=== PATIENT | female | born 1945 | race Two or more races ===

== ENCOUNTER 2017-05-15 09:38 | Emergency (ER) | payer MEDICARE, OTHER ==
[2017-05-15 09:48] VITALS: BP 165/74; PULSE 88; TEMP 97.8; BMI 32.2
[2017-05-15] MEDS ORDERED: IBUPROFEN 600 MG TABLET (FP) PO ONE ×2 (11:20→11:22)
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
== END 2017-05-15 12:48 | disposition home or self-care (01) ==
LOC: JERFT 09:38
DX: S50.01XA Contusion of right elbow, initial encounter (principal); V03.10XA Pedestrian on foot injured in collision with car, pick-up truck or van in traffic accident, initial encounter; Y92.414 Local residential or business street as the place of occurrence of the external cause; Y93.89 Activity, other specified; Y99.8 Other external cause status; I10 Essential (primary) hypertension; E78.00 Pure hypercholesterolemia, unspecified; E11.9 Type 2 diabetes mellitus without complications; Z79.84 Long term (current) use of oral hypoglycemic drugs
CPT/HCPCS: 71101-TC-RT-FY; 73070-TC-RT-FY; 99281-25

== ENCOUNTER 2018-06-10 21:58 | Inpatient (IN) | payer MEDICARE, OTHER ==
[2018-06-11] MEDS ORDERED: LACTATED RINGERS SOLUTION 1000 ML INFUS.BAG IV ONE (00:33)
[2018-06-11] MEDS ORDERED: morphine CARPU-JECT 4 MG/1 ML DISP.SYRIN IVPUSH ONE ×2 (00:33→01:47)
[2018-06-11] MEDS ORDERED: ONDANSETRON 4 MG/2 ML VIAL IVPB ONE (00:33)
[2018-06-11 00:43] LABS: BASO % 0.2 % (0-2.0); MCH 30.4 pg (25.7-33.7); MEAN PLT VOLUME 9.4 fl (7.5-11.1); RBC 4.63 M/mm3 (3.60-5.2)
[2018-06-11 00:45] LABS: EOS % 0.2 % (0-4.5); HEMATOCRIT 41.4 % (32.4-45.2); HEMOGLOBIN 14.1 GM/dL (10.7-15.3); LYMPH % 9.3 % (8-40); MCHC 33.9 g/dl (32.0-36.0); MEAN CELL VOLUME 89.5 fl (80-96); NEUT % 86.3 % (42.8-82.8); PLATELET COUNT 192 K/MM3 (134-434); RDW 14.4 % (11.6-15.6); WHITE BLOOD COUNT 7.7 K/mm3 (4.0-10.0)
[2018-06-11] MEDS ORDERED: MAG HYDROX/AL HYDROX/SIMETH 30 ML UNIT-DOSE CUP PO ONE (00:49)
[2018-06-11] MEDS ORDERED: FAMOTIDINE 20 MG/50 ML IVPB 20 MG/50 ML MG IVPB ONE ×2 (00:49→00:52)
[2018-06-11] MEDS ORDERED: MAG HYDROX/AL HYDROX/SIMETH 30 ML UNIT-DOSE CUP ONE (00:52)
[2018-06-11] MEDS ORDERED: ONDANSETRON 4 MG/2 ML VIAL ONE (00:52)
--- NOTE | 2018-06-11 00:56 | PDOC ---
Attending Attestation - Resident Resident Name: Nini Carmen - ED Attending Attestation I have performed the following: I have examined & evaluated the patient, The case was reviewed & discussed with the resident, I agree w/resident's findings & plan, Exceptions are as noted - HPI HPI: 06/11/18 00:57 72 yo female p/w epigastric pain,nausea since Sunday pain radiated to her back - Physicial Exam PE: 06/11/18 01:07 wnwd 72 yo female p/w epigastric pain head ncat neck supple lungs cta b/l cvs [id number] abd epigastric tenderness,+bs ext no edema skin warm and dry neuro axox3,ambulatory psych appropriate 06/11/18 01:17 - Medical Decision Making 06/11/18 01:18 differential includes cholecystitis, gastritis,GERD,ACS 06/11/18 01:25 alt >1000 ast.500 tbili=3.4 pt admitted for acute cholecystitis 06/12/18 00:12
[2018-06-11 01:20] LABS: ALBUMIN 3.9 g/dl (3.4-5.0); ALK PHOS 451 U/L (45-117); ANION GAP 9 MMOL/L (8-16); BILIRUBIN,TOTAL 3.4 mg/dL (0.2-1); BLOOD UREA NITROGEN 15 mg/dL (7-18); CALCIUM 10.6 mg/dL (8.5-10.1); CHLORIDE 101 mmol/L (98-107); CO2 25 mmol/L (21-32); CREATININE 0.6 mg/dL (0.55-1.3); POTASSIUM 3.7 mmol/L (3.5-5.1); SGOT/AST 507 U/L (15-37); SGPT/ALT 1098 U/L (13-61); SODIUM 135 mmol/L (136-145); TOT PROT 7.6 g/dl (6.4-8.2)
[2018-06-11 01:22] LABS: GLUCOSE,RANDOM 308 mg/dL (74-106)
--- NOTE | 2018-06-11 01:47 | PDOC ---
History of Present Illness - General Chief Complaint: Pain Stated Complaint: STOMACH PAIN Time Seen by Provider: 06/11/18 00:05 History Source: Patient, Family Exam Limitations: Language Barrier - History of Present Illness Travel History: No Initial Comments: 06/11/18 01:41 Pt is a 72yo F with PMH of NIDDM, HTN, HLD, Hypothyroidism presenting to ED with complaints of epigastric abdominal pain x 3 days. Pt says the pain started on Sunday, has been constant and radiates to the back. Associated with nausea. Last BM was 2 days ago. She denies vomiting, fever, chills, bloody stools, chest pain, sob, urinary symptoms, headaches, numbness, tingling, cough. She had c-sections and a hernia repair many years ago. She has had pain like this before. She has ultrasound scheduled for next week. PMD: Juan Manuel PMH: see hpi PSH: see hpi Meds: Allergies: nkda Social: denies Past History - Past Medical History Allergies/Adverse Reactions: Allergies Allergy/AdvReac Type Severity Reaction Status Date / Time No Known Drug Allergies Allergy Verified 05/15/17 09:41 Home Medications: Ambulatory Orders Amlodipine Besylate/Benazepril [Lotrel 5-20 mg Capsule] 5 - 20 each PO DAILY 09/12 Atorvastatin Ca [Lipitor] 20 mg PO HS 07/06/12 Glipizide [Glipizide Xl] 5 mg PO DAILY 07/06/12 metFORMIN HCL [Glucophage -] 500 mg PO BID 07/06/12 Glimepiride [Amaryl -] 2 mg PO DAILY 06/12/18 Levothyroxine [Synthroid -] 75 mcg PO DAILY 06/12/18 Acetaminophen [Tylenol .Regular Strength -] 650 mg PO Q6H tablet 06/15/18 COPD: No - Suicide/Smoking/Psychosocial Hx Smoking History: Never smoked Have you smoked in the past 12 months: No Information on smoking cessation initiated: No Hx Alcohol Use: No Drug/Substance Use Hx: No Review of Systems - Review of Systems Constitutional: Yes: See HPI HEENTM: Yes: See HPI Respiratory: Yes: See HPI Cardiac (ROS): Yes: See HPI ABD/GI: Yes: See HPI : Yes: See HPI Musculoskeletal: Yes: See HPI Integumentary: Yes: See HPI Neurological: Yes: See HPI *Physical Exam - Vital Signs Last Vital Signs Temp Pulse Resp BP Pulse Ox 98.0 F 83 16 123/54 L 100 06/10/18 22:13 06/10/18 22:13 06/10/18 22:13 06/10/18 22:13 06/11/18 01:07 - Physical Exam General Appearance: Yes: Nourished, Appropriately Dressed, Mild Distress HEENT: positive: EOMI, PHYLICIA Neck: positive: Trachea midline, Supple Respiratory/Chest: positive: Lungs Clear, Normal Breath Sounds Cardiovascular: positive: Regular Rhythm, Regular Rate, S1, S2 Vascular Pulses: Carotid (R): 2+, Carotid (L): 2+, Dorsalis-Pedis (R): 2+, Doralis-Pedis (L): 2+ Gastrointestinal/Abdominal: positive: Normal Bowel Sounds, Tender (epigastric, RUQ), Soft. negative: Guarding, Rebound, Hernia, Mass Musculoskeletal: negative: CVA Tenderness Extremity: positive: Normal Capillary Refill. negative: Swelling Integumentary: positive: Normal Color, Dry, Warm Neurologic: positive: or director II-XII NML intact, Fully Oriented, Alert, Normal Mood/ Affect, Normal Response, Motor Strength 5/5 Moderate Sedation - Procedure Monitoring Vital Signs: Procedure Monitoring Vital Signs Temperature 98.0 F 06/10/18 22:13 Pulse Rate 83 06/10/18 22:13 Respiratory Rate 16 06/10/18 22:13 Blood Pressure 123/54 L 06/10/18 22:13 O2 Sat by Pulse Oximetry (%) 100 06/11/18 01:07 ED Treatment Course - LABORATORY CBC & Chemistry Diagram: 06/14/18 06:30 06/14/18 06:30 - ADDITIONAL ORDERS Additional order review: Laboratory Results 06/11/18 06/11/18 00:23 00:23 Sodium 135 L Potassium 3.7 Chloride 101 Carbon Dioxide 25 Anion Gap 9 BUN 15 Creatinine 0.6 Creat Clearance w eGFR > 60 Random Glucose 308 H* Lactic Acid 1.5 Calcium 10.6 H Total Bilirubin 3.4 H AST 507 H ALT 1098 H Alkaline Phosphatase 451 H Total Protein 7.6 Albumin 3.9 06/11/18 00:23 RBC 4.63 MCV 89.5 MCHC 33.9 RDW 14.4 MPV 9.4 Neutrophils % 86.3 H Lymphocytes % 9.3 Monocytes % 4.0 Eosinophils % 0.2 Basophils % 0.2 - RADIOLOGY Radiology Studies Ordered: Category Date Time Status ABDOMEN US -LIMITED [US] Stat Ultrasound 06/11/18 00:56 Taken - Medications Given in the ED: ED Medications Discontinued Medications Generic Name Dose Route Start Last Admin Trade Name Giselle PRN Reason Stop Dose Admin Al Hydroxide/Mg Hydroxide 30 ml 06/11/18 00:49 06/11/18 01:18 Mylanta Oral Suspension - PO 06/11/18 00:50 30 ml ONCE ONE Administration Famotidine/Sodium Chloride 20 mg in 50 mls @ 100 mls/hr 06/11/18 00:49 01:18 Pepcid 20 Mg Premixed Ivpb - IVPB 06/11/18 01:18 100 mls/hr ONCE ONE Administration Lactated Ringer's 1,000 ml 06/11/18 00:33 06/11/18 01:14 Lactated Ringers Solution IV 06/11/18 00:34 1,000 ml NOW ONE Administration Ondansetron HCl 4 mg 06/11/18 00:33 06/11/18 01:18 Zofran Injection IVPB 06/11/18 00:34 4 mg ONCE ONE Administration Medical Decision Making - Medical Decision Making 06/11/18 01:45 Pt is a 72yo F with PMH of NIDDM, HTN, HLD, Hypothyroidism presenting to ED with complaints of epigastric abdominal pain x 3 days. Pt says the pain started on Sunday, has been constant and radiates to the back. Associated with nausea. Last BM was 2 days ago. She denies vomiting, fever, chills, bloody stools, chest pain, sob, urinary symptoms, headaches, numbness, tingling, cough. She had c-sections and a hernia repair many years ago. She has had pain like this before. She has ultrasound scheduled for next week. Vitals: wnl PE: epigastric and RUQ tenderness. DDx includes but not limited to cholecystitis, pancreatitis, cholangitis, nephrolithiasis, pyelonephritis, colitis, AAA, dissection -cbc, cmp, lipase, trop -ekg, u/s -pepcid, zofran, mylanta, morphine, fluids labs significant for transaminitis and elevated lipase US: dilated biliary tree. Will admit choledocolithiasis v. cholangitis *DC/Admit/Observation/Transfer Diagnosis at time of Disposition: Cholelithiasis - Discharge Dispostion Disposition: HOME Condition at time of disposition: Stable - Referrals - Patient Instructions - Post Discharge Activity
[2018-06-11] MEDS ORDERED: morphine SULFATE 4 MG/ML VIAL ONE (02:15)
[2018-06-11] MEDS ORDERED: PIPERACILLIN/TAZOB 3.375 GM 3.375 GM in DEXTROSE 5%-WATER - 50 ML IVPB ONE (02:24)
[2018-06-11] MEDS ORDERED: PIPERACILLIN/TAZOB 3.375 GM 3.375 GM/50 ML BAG IVPB ONE (02:41)
[2018-06-11 02:57] LABS: URINE APPEARANCE CLEAR; URINE BILIRUBIN NEGATIVE (<2.0 mg/dL); URINE COLOR YELLOW; URINE GLUCOSE (UA) 3+ (NEGATIVE); URINE KETONE 1+ (NEGATIVE); URINE LEUK ESTERASE TRACE (NEGATIVE); URINE NITRITE NEGATIVE (NEGATIVE); URINE PROTEIN NEGATIVE (NEGATIVE)
[2018-06-11 03:00] LABS: EPI CELLS RARE /HPF (FEW)
--- NOTE | 2018-06-11 03:29 | HP ---
<Paul,Vince - Last Filed: 06/11/18 06:29> CHIEF COMPLAINT: Epigastric Pain PCP: HISTORY OF PRESENT ILLNESS: Pt. is 72 y.o. Kyrgyz-speaking F w/ PMHx. of NIDDM , HTN, HLD and Hypothyroidism presents with 3 days history of worsening abdominal pain. Pt. states the pain radiates to the back. Pts states that years ago in [place] she had a pain like this and it was treated with medication. Pt. endorses nausea over the last 3 days when attempting to eat but no vomiting. Pt. has decreased PO intake. Pt. denies chest pain, shortness of breath, diarrhea or constipation. Pt. denies fever or chills. Pt. does not recall names of her medications, states will bring list in AM. ER course was notable for: (1)Abdominal US (2)LFTs (3)Zosyn Recent Travel: PAST MEDICAL HISTORY: NIDDM, HTN, HLD, Hypothyroidism PAST SURGICAL HISTORY: C-sections and Hernia repair many years ago. Social History: Smoking: Denies Alcohol: Denies Drugs: Denies Family History: Daughter at 48 of unknown stomach cancer Allergies No Known Allergies Allergy (Verified 06/10/18 22:15) HOME MEDICATIONS: Home Medications Medication Instructions Recorded Unobtainable 06/11/18 REVIEW OF SYSTEMS CONSTITUTIONAL: Present: loss of appetite Absent: fever, chills, diaphoresis, generalized weakness, malaise, weight change HEENT: Absent: rhinorrhea, nasal congestion, throat pain, throat swelling, difficulty swallowing, mouth swelling, ear pain, eye pain, visual changes CARDIOVASCULAR: Absent: chest pain, syncope, palpitations, irregular heart rate, lightheadedness , peripheral edema RESPIRATORY: Absent: cough, shortness of breath, dyspnea with exertion, orthopnea, wheezing, stridor, hemoptysis GASTROINTESTINAL: nausea, abdominal pain Absent: abdominal distension, vomiting, diarrhea, constipation, melena, hematochezia GENITOURINARY: Absent: dysuria, frequency, urgency, hesitancy, hematuria, flank pain, genital pain MUSCULOSKELETAL: Absent: myalgia, arthralgia, joint swelling, back pain, neck pain SKIN: Absent: rash, itching, pallor HEMATOLOGIC/IMMUNOLOGIC: Absent: easy bleeding, easy bruising, lymphadenopathy, frequent infections ENDOCRINE: Absent: unexplained weight gain, unexplained weight loss, heat intolerance, cold intolerance NEUROLOGIC: Absent: headache, focal weakness or paresthesias, dizziness, unsteady gait, seizure, mental status changes, bladder or bowel incontinence PSYCHIATRIC: Absent: anxiety, depression, suicidal or homicidal ideation, hallucinations. PHYSICAL EXAMINATION Vital Signs - 24 hr 06/10/18 06/11/18 22:13 01:07 Temperature 98.0 F Pulse Rate 83 Respiratory 16 Rate Blood Pressure 123/54 L O2 Sat by Pulse 100 100 Oximetry (%) GENERAL: Awake, alert, and fully oriented, in no acute distress. HEAD: Normal with no signs of trauma. EYES: Pupils equal, round, sclera anicteric, conjunctiva clear EARS, NOSE, THROAT: Ears normal, nares patent. Moist mucous membranes. NECK: Normal range of motion, supple without lymphadenopathy, JVD, or masses. LUNGS: Breath sounds equal, clear to auscultation bilaterally. No wheezes, and no crackles. No accessory muscle use. HEART: Regular rate and rhythm, normal S1 and S2 without murmur, rub or gallop. ABDOMEN: Soft, epigastric tenderness, not distended, normoactive bowel sounds, no guarding, no rebound, no masses, Allen negative, Wall's sign negative. MUSCULOSKELETAL: Tenderness in lower thoracic spine from abdomen, No CVA tenderness. Banda-Alarcon's sign Negative UPPER EXTREMITIES: 2+ radial pulses, warm, well-perfused. No cyanosis. No clubbing. No peripheral edema. LOWER EXTREMITIES: 2+ dorsal pedal pulses, warm, well-perfused. No calf tenderness. No peripheral edema. NEUROLOGICAL: Normal speech. Normal gait. PSYCHIATRIC: Cooperative. Good eye contact. Appropriate mood and affect. SKIN: Warm, dry, normal turgor, no rashes or lesions noted, normal capillary refill. Laboratory Results - last 24 hr 06/11/18 06/11/18 06/11/18 00:23 00:23 00:23 WBC 7.7 RBC 4.63 Hgb 14.1 Hct 41.4 MCV 89.5 MCH 30.4 MCHC 33.9 RDW 14.4 Plt Count 192 MPV 9.4 Absolute Neuts (auto) 6.6 Neutrophils % 86.3 H Lymphocytes % 9.3 Monocytes % 4.0 Eosinophils % 0.2 Basophils % 0.2 Nucleated RBC % 0 Sodium 135 L Potassium 3.7 Chloride 101 Carbon Dioxide 25 Anion Gap 9 BUN 15 Creatinine 0.6 Creat Clearance w eGFR > 60 Random Glucose 308 H* Lactic Acid Calcium 10.6 H Total Bilirubin 3.4 H AST 507 H ALT 1098 H Alkaline Phosphatase 451 H Troponin I Cancelled Total Protein 7.6 Albumin 3.9 Lipase Urine Color Urine Appearance Urine pH Ur Specific [place] Urine Protein Urine Glucose (UA) Urine Ketones Urine Blood Urine Nitrite Urine Bilirubin Urine Urobilinogen Ur Leukocyte Esterase Urine WBC (Auto) Urine RBC (Auto) Ur Epithelial Cells 06/11/18 06/11/18 06/11/18 00:23 00:23 00:23 WBC RBC Hgb Hct MCV MCH MCHC RDW Plt Count MPV Absolute Neuts (auto) Neutrophils % Lymphocytes % Monocytes % Eosinophils % Basophils % Nucleated RBC % Sodium Potassium Chloride Carbon Dioxide Anion Gap BUN Creatinine Creat Clearance w eGFR Random Glucose Lactic Acid 1.5 Calcium Total Bilirubin AST ALT Alkaline Phosphatase Troponin I < 0.02 Total Protein Albumin Lipase 278 Urine Color Urine Appearance Urine pH Ur Specific [place] Urine Protein Urine Glucose (UA) Urine Ketones Urine Blood Urine Nitrite Urine Bilirubin Urine Urobilinogen Ur Leukocyte Esterase Urine WBC (Auto) Urine RBC (Auto) Ur Epithelial Cells 06/11/18 02:45 WBC RBC Hgb Hct MCV MCH MCHC RDW Plt Count MPV Absolute Neuts (auto) Neutrophils % Lymphocytes % Monocytes % Eosinophils % Basophils % Nucleated RBC % Sodium Potassium Chloride Carbon Dioxide Anion Gap BUN Creatinine Creat Clearance w eGFR Random Glucose Lactic Acid Calcium Total Bilirubin AST ALT Alkaline Phosphatase Troponin I Total Protein Albumin Lipase Urine Color Yellow Urine Appearance Clear Urine pH 6.0 Ur Specific [place] 1.018 Urine Protein Negative Urine Glucose (UA) 3+ H Urine Ketones 1+ H Urine Blood Negative Urine Nitrite Negative Urine Bilirubin Negative Urine Urobilinogen 2.0 H Ur Leukocyte Esterase Trace Urine WBC (Auto) 5 Urine RBC (Auto) 1 Ur Epithelial Cells Rare ASSESSMENT/PLAN: Pt. is a 72 y.o. F w/ PMHx. of NIDDM, HTN, HLD, and Hypothyroidism presents with 3 days of abdominal pain. #Abdominal Pain 2/2 cholecystitis Abdominal US positive for gallstones, thickened GB wall (4mm) and CBD dilatation (11mm) Exquisite epigastric tenderness f/u MRCP, ERCP and then CCY AST: 507; ALT: 1098, TBili-3.4, ALP 451 f/u Gastroenterology (Dr. Wlaler) consult f/u Surgery (Dr. Mascorro)consult f/u ID (Dr. Siddiqui) consult c/w Zosyn #NIDDM-uncontrolled Random Glucose 308 3+ Glucose and 1+ ketones in urine f/u HgbA1c ISS TIDAC BGM TIDAC hold home medications #FEN NS @ 125/hr monitor electrolytes replete as needed NPO #DVT PPx. HeparinSQ Visit type - Emergency Visit Emergency Visit: Yes ED Registration Date: 06/11/18 Care time: The patient presented to the Emergency Department on the above date and was hospitalized for further evaluation of their emergent condition. - New Patient This patient is new to me today: Yes Date on this admission: 06/11/18 - Critical Care Critical Care patient: No <Chivo Carl - Last Filed: 07/17/18 19:39> Seen and examined; agree with above aside from as supplemented by myself in my own assessment, plan, and physical examination.
--- NOTE | 2018-06-11 04:07 | PN ---
Teaching Attending Note Name of Resident: Vince Miller ATTENDING PHYSICIAN STATEMENT I saw and evaluated the patient. I reviewed the resident's note and discussed the case with the resident. I agree with the resident's findings and plan as documented. SUBJECTIVE: Seen and examined; please refer to resident note for further historical information. Briefly, this is a 72 y/o female who presents to the ER with a CC of abdominal pain. Pain started 3 days ago and radiates to the back through the epigastrium. Was scheduled for US next week but pain got so severe that she came in. Has had similar pain years ago in [place]. Hx , hernia repair. Does have some severe nausea and associated anorexia. US done in the ER shows GB wall thickening and 11 CBD; started on broad spectrum abx and bringing to the floor. She is hemdynamically stable. No jaundice observed , afebrile. Pain is nearly resolved after analgesia given in ER. 10 sys ROS done and negative aside from HPI FH (daughter with stomach tumor) PMH (DM, HTN, HLD, Hypothyroidism) Medications pending; calling pharmacy OBJECTIVE: VS, labs, imaging reviewed NAD, AAO, resting comfortably in bed. NC AT EOMI PERRLA; tacky MM's Epigastric ptp with some mild guarding, nondistended Lungs CTAB, w/ sym exp RRR s1/2 no mgr CN2-12 wnl, no fnd Normal mood, appropriate affect. Imaging shows CBD 11mm, GB with gallstones and thickening to 4mm of the wall. ASSESSMENT AND PLAN: Patient presents with abdominal pain and transaminitis and choledocholithiasis 1) Choledocholithiasis -IV zosyn, GI and sgy consult, NPO, IVF, pain and nausea control -MRCP w and w/o pending (given elevated alkaline phosphatasse) pending. Further workup per GI. Trend CMP. 2) DM -SSI 3) HTN -Hold PO meds; resume when clinically appropriate. PRN management to keep <160 4) Hypothyroidism -Check TSH as OP 5) HLD -Followup FLP as OP 6) Transaminitis -2/2 #1; trend CMP Full Code
[2018-06-11] MEDS ORDERED: HEPARIN NA (PORCINE) 5,000 UNITS/ML 1ML VIAL SQ SCH (06:00)
[2018-06-11] MEDS: SODIUM CHLORIDE 1,000 ML IV SCH ×3 (06:26→13:28)
[2018-06-11] MEDS ORDERED: HEPARIN NA (PORCINE) 5,000 UNITS/ML 1ML VIAL ONE (06:32)
[2018-06-11 07:13] LABS: BASO % 0.5 % (0-2.0); EOS % 0.3 % (0-4.5); HEMOGLOBIN 12.2 GM/dL (10.7-15.3); LYMPH % 21.9 % (8-40); MCHC 33.9 g/dl (32.0-36.0); MEAN CELL VOLUME 88.5 fl (80-96); MEAN PLT VOLUME 9.2 fl (7.5-11.1); MONO % 7.2 % (3.8-10.2); NEUT % 70.1 % (42.8-82.8); PLATELET COUNT 173 K/MM3 (134-434); RBC 4.06 M/mm3 (3.60-5.2); RDW 14.7 % (11.6-15.6); WHITE BLOOD COUNT 6.5 K/mm3 (4.0-10.0)
[2018-06-11] MEDS ORDERED: INSULIN (NOVOLOG) ASPART 100 UNITS/ML 10ML VIAL ONE (07:15)
[2018-06-11] MEDS: INSULIN SLIDING SCALE (NOVOLOG) 1 VIAL SQ SCH ×3 (07:19→16:52)
[2018-06-11 07:45] LABS: ALBUMIN 3.2 g/dl (3.4-5.0); ALK PHOS 393 U/L (45-117); ANION GAP 6 MMOL/L (8-16); BLOOD UREA NITROGEN 11 mg/dL (7-18); CALCIUM 9.9 mg/dL (8.5-10.1); CHLORIDE 109 mmol/L (98-107); CO2 24 mmol/L (21-32); CREATININE 0.6 mg/dL (0.55-1.3); GLUCOSE,RANDOM 216 mg/dL (74-106); MAGNESIUM 1.7 mg/dL (1.8-2.4); PHOSPHOROUS 2.3 mg/dL (2.5-4.9); POTASSIUM 3.7 mmol/L (3.5-5.1); SGOT/AST 551 U/L (15-37); SGPT/ALT 991 U/L (13-61); SODIUM 139 mmol/L (136-145); TOT PROT 6.2 g/dl (6.4-8.2)
[2018-06-11 07:46] LABS: INR 1.04 (0.83-1.09); PROTHROMBIN TIME (PATIENT) 12.3 SEC (9.7-13.0)
[2018-06-11] MEDS ORDERED: ACETAMINOPHEN 1000 MG/100 ML VIAL (NON FORMULARY) IVPB PRN (07:48)
[2018-06-11 08:25] VITALS: BMI 32.3
[2018-06-11] MEDS ORDERED: PNEUMOC 13-VAL CONJ-DIP CRM/PF 0.5 ML DISP.SYRIN IM ONE (09:30)
[2018-06-11] MEDS ORDERED: PIPERACILLIN/TAZOBACTAM 3.375 GM VIAL IVPB ONE ×2 (09:59→16:44)
[2018-06-11] MEDS ORDERED: DEXTROSE 5%-WATER - 50 ML IVPB ONE ×2 (09:59→16:44)
[2018-06-11] MEDS ORDERED: PIPERACILLIN/TAZOB 3.375 GM 3.375 GM in DEXTROSE 5%-WATER - 50 ML IVPB SCH (10:00)
[2018-06-11] MEDS: PANTOPRAZOLE SODIUM 40 MG VIAL IVPUSH SCH (10:22)
--- NOTE | 2018-06-11 10:43 | CON.GI ---
Consult Reason for Consultation:: abdominal pain - History of Present Illness History of Present Illness: Pt is a 72 year old woman with a past medical history of DM, HTN, HLD, hypothyroidism who presents with a three day history of epigastric abdominal pain and nausea. She has not been able to tolerate po intake. She reports similar episode in [place] a few months back. - History Source History Provided By: Medical Record Limitations to Obtaining History: Other (pt at [facility]ri) - Past Medical History Cardio/Vascular: Yes: HTN, Hyperlipdemia - Past Surgical History Past Surgical History: Yes: , Hernia Repair - Alcohol/Substance Use Hx Alcohol Use: No - Smoking History Smoking history: Never smoked Have you smoked in the past 12 months: No - Social History Usual Living Arrangement: Other Home Medications - Allergies Allergies/Adverse Reactions: Allergies Allergy/AdvReac Type Severity Reaction Status Date / Time No Known Allergies Allergy Verified 06/10/18 22:15 - Home Medications Home Medications: Ambulatory Orders Unobtainable 06/11/18 Family Disease History - Family Disease History Other Family History: gastric cancer - mother Review of Systems - Review of Systems Gastrointestinal: reports: Abdominal Pain Physical Exam-GI Vital Signs: Vital Signs Temperature 97.8 F 06/11/18 08:00 Pulse Rate 75 06/11/18 08:00 Respiratory Rate 20 06/11/18 08:00 Blood Pressure 160/75 06/11/18 08:00 O2 Sat by Pulse Oximetry (%) 97 06/11/18 07:00 Labs: CBC, BMP 06/11/18 06:45 06/11/18 06:45 INR, PTT INR 1.04 (0.83-1.09) 06/11/18 06:45 Imaging - Results Ultrasound: Report Reviewed, Image Reviewed MRI: Pending Problem List - Problems (1) Transaminitis Assessment/Plan: Impression: Transaminitis / dilated cbd on imaging suspicious for choledocholithiasis / cholecystitis REC: - npo / ivf's - zosyn - trend lft q12 - will order hep serologies for completeness - await results of MRCP , may need ercp pending results - surgery consultation - pt will be followed by the GI service. Code(s): R74.0 - NONSPEC ELEV OF LEVELS OF TRANSAMNS & LACTIC ACID DEHYDRGNSE (2) Abdominal pain Code(s): R10.9 - UNSPECIFIED ABDOMINAL PAIN (3) Cholelithiasis Code(s): K80.20 - CALCULUS OF GALLBLADDER W/O CHOLECYSTITIS W/O OBSTRUCTION
--- NOTE | 2018-06-11 13:05 | PN ---
Teaching Attending Note Name of Resident: Pedro Sam ATTENDING PHYSICIAN STATEMENT I saw and evaluated the patient. I reviewed the resident's note and discussed the case with the resident. I agree with the resident's findings and plan as documented. SUBJECTIVE: No fever or chills. No ROSE , no abd pain at this time. No N/V. reports abd pain on and off for past 3 days. resolved with morphine given in ER. she denies PC or SOB, denies exertional CP . no SOB OBJECTIVE: NAD , slightly icteric sclera Cv: RRR, no MRG Lungs: CTAB. Abd: soft, ND, TTP in epigastric area. Neg Allen's. No rebound tenderness or guarding. Ext : no edema or erythema ASSESSMENT AND PLAN: 72 y/o lady with h/o HTN, HLP, DM ,hyothyroidism and other medical problems who presented with N/V and abd pain, and was found to have transaminitis and dialtion of CBD . 1- Transaminitis : co ncern for CBd stone, especially with rising LFTS. US with gall stones in gall bladder and CBD dilation of 10 mm No signs of sepsis , but certainly at high risk . - MRCP. called to make it urgent - cont zosyn empiricaly. ID to evaluate - IVF . - GI recs pending - will possibly need ERCP - has no cardiac issues, no murmurs appreciated on exam, has no LANE or exertional CP . will be low risk for GI procedure - timing of CCY to be determined after MRCP and possible ERCP - DC heparin , for possible ERCP 2- DM : SSI q 6 hr, while NPO . loose scale 3- HTN: low to normal blood pressure . will monitor Dispo: HLOC
--- NOTE | 2018-06-11 13:23 | CON.ID ---
Consult Consult Specialty:: infectious diseases Referred by:: dr lópez Reason for Consultation:: abd pain ,choleycystitis - History of Present Illness Chief Complaint: abd pain History of Present Illness: 72 year old woman with a past medical history of DM, HTN, HLD, hypothyroidism who presents with a three day history of epigastric abdominal pain and nausea. She has not been able to tolerate po intake. She reports similar episode in [place] a few months back. patient was worked up and found to ahve gall stones surgery and gi on the case - History Source History Provided By: Patient Limitations to Obtaining History: No Limitations - Alcohol/Substance Use Hx Alcohol Use: No - Smoking History Smoking history: Never smoked Have you smoked in the past 12 months: No Home Medications - Allergies Allergies/Adverse Reactions: Allergies Allergy/AdvReac Type Severity Reaction Status Date / Time No Known Drug Allergies Allergy Verified 05/15/17 09:41 - Home Medications Home Medications: Ambulatory Orders Amlodipine Besylate/Benazepril [Lotrel 5-20 mg Capsule] 5 - 20 each PO DAILY 09/12 Atorvastatin Ca [Lipitor] 20 mg PO HS 07/06/12 Glipizide [Glipizide Xl] 5 mg PO DAILY 07/06/12 metFORMIN HCL [Glucophage -] 500 mg PO BID 07/06/12 Glimepiride [Amaryl -] 2 mg PO DAILY 06/12/18 Levothyroxine [Synthroid -] 75 mcg PO DAILY 06/12/18 Benazepril HCl 20 mg PO DAILY 08/23/18 Cephalexin Monohydrate [Keflex -] 500 mg PO BID #14 capsule 08/23/18 Review of Systems - Review of Systems Constitutional: reports: No Symptoms Eyes: reports: No Symptoms HENT: reports: No Symptoms Neck: reports: No Symptoms Cardiovascular: reports: No Symptoms Respiratory: reports: No Symptoms Gastrointestinal: reports: Abdominal Pain Genitourinary: reports: No Symptoms Musculoskeletal: reports: No Symptoms Integumentary: reports: No Symptoms Neurological: reports: No Symptoms Endocrine: reports: No Symptoms Hematology/Lymphatic: reports: No Symptoms Psychiatric: reports: No Symptoms Physical Exam Vital Signs: Vital Signs Temperature 97.8 F 06/11/18 08:00 Pulse Rate 75 06/11/18 08:00 Respiratory Rate 20 06/11/18 08:00 Blood Pressure 160/75 06/11/18 08:00 O2 Sat by Pulse Oximetry (%) 97 06/11/18 07:00 Constitutional: Yes: Well Nourished, Calm, Mild Distress Eyes: Yes: Conjunctiva Clear HENT: Yes: Atraumatic, Normocephalic Neck: Yes: Supple, Trachea Midline Cardiovascular: Yes: Regular Rate and Rhythm, S1, S2 Respiratory: Yes: Regular, CTA Bilaterally Gastrointestinal: Yes: Normal Bowel Sounds, Soft, Other (mild tenderness) Musculoskeletal: Yes: WNL Extremities: Yes: WNL Neurological: Yes: Alert, Oriented Psychiatric: Yes: Alert, Oriented Labs: CBC, BMP 06/11/18 06:45 06/11/18 06:45 Imaging - Results Chest X-ray: Report Reviewed, Image Reviewed Ultrasound: Report Reviewed, Image Reviewed MRI: Report Reviewed, Image Reviewed Assessment/Plan Problem List - Problems (1) Calculus gallbladder and bile duct w/acute cholecystitis and obstructn Code(s): K80.63 - CALCULUS OF GB AND BILE DUCT W ACUTE CHOLECYST W OBSTRUCTION (2) Epigastric pain Code(s): R10.13 - EPIGASTRIC PAIN (3) Controlled diabetes mellitus with hyperglycemia, without long-term current use of insulin Code(s): E11.65 - TYPE 2 DIABETES MELLITUS WITH HYPERGLYCEMIA Qualifiers: Diabetes mellitus type: type 2 Qualified Code(s): E11.65 - Type 2 diabetes mellitus with hyperglycemia (4) Hypertension Code(s): I10 - ESSENTIAL (PRIMARY) HYPERTENSION Qualifiers: Hypertension type: essential hypertension Qualified Code(s): I10 - Essential (primary) hypertension (5) Hypothyroidism Code(s): E03.9 - HYPOTHYROIDISM, UNSPECIFIED Qualifiers: Hypothyroidism type: unspecified Qualified Code(s): E03.9 - Hypothyroidism , unspecified (6) Hyperlipidemia Code(s): E78.5 - HYPERLIPIDEMIA, UNSPECIFIED Qualifiers: Hyperlipidemia type: unspecified Qualified Code(s): E78.5 - Hyperlipidemia , unspecified (7) Obesity (BMI 30.0-34.9) Code(s): E66.9 - OBESITY, UNSPECIFIED plan will start patient on iv abx surgery to see the patient gi on case hydration further studies rest as per the team
--- NOTE | 2018-06-11 13:31 | EKG ---
Test Reason : Blood Pressure : / mmHG Vent. Rate : 083 BPM Atrial Rate : 083 BPM P-R Int : 182 ms QRS Dur : 080 ms QT Int : 394 ms P-R-T Axes : 047 -23 034 degrees QTc Int : 462 ms NORMAL SINUS RHYTHM POSSIBLE LEFT ATRIAL ENLARGEMENT BORDERLINE ECG NO PREVIOUS ECGS AVAILABLE Confirmed by MD LEXI, PANCHO ([id number]) on 06/11/2018 1:31:18 PM Referred By: Confirmed By:PANCHO ELLIOTT MD
[2018-06-11] MEDS: PIPERACILLIN/TAZOB 3.375 GM 3.375 GM in DEXTROSE 5%-WATER - 50 ML IVPB SCH ×2 (16:54→17:01)
--- NOTE | 2018-06-11 19:43 | PN ---
Physical Exam: SUBJECTIVE: Patient seen and examined at bedside. Denies any complaints. OBJECTIVE: Vital Signs Period Temp Pulse Resp BP Sys/Farah Pulse Ox Last 24 Hr 97.4 F-98.4 F 73-83 16-21 102-166/54-82 94-100 GENERAL: Nepali speaking adult female. Well nourished NAD HEAD: Normal with no signs of trauma. EYES: No scleral icterus EOMI ENT: MMM LUNGS: CTAB HEART: RRR ABDOMEN: Nondistended nontender. Allen's sign -. No rebound or guarding or rigidity. EXTREMITIES: No CCE NEUROLOGICAL: Cranial nerves II through XII grossly intact. PSYCH: Normal mood, normal affect. Laboratory Results - last 24 hr 06/11/18 06/11/18 06/11/18 00:23 00:23 00:23 WBC 7.7 RBC 4.63 Hgb 14.1 Hct 41.4 MCV 89.5 MCH 30.4 MCHC 33.9 RDW 14.4 Plt Count 192 MPV 9.4 Absolute Neuts (auto) 6.6 Neutrophils % 86.3 H Lymphocytes % 9.3 Monocytes % 4.0 Eosinophils % 0.2 Basophils % 0.2 Nucleated RBC % 0 PT with INR INR Sodium 135 L Potassium 3.7 Chloride 101 Carbon Dioxide 25 Anion Gap 9 BUN 15 Creatinine 0.6 Creat Clearance w eGFR > 60 POC Glucometer Random Glucose 308 H* Hemoglobin A1c % Lactic Acid Calcium 10.6 H Phosphorus Magnesium Total Bilirubin 3.4 H AST 507 H ALT 1098 H Alkaline Phosphatase 451 H Troponin I Cancelled Total Protein 7.6 Albumin 3.9 Lipase Urine Color Urine Appearance Urine pH Ur Specific [place] Urine Protein Urine Glucose (UA) Urine Ketones Urine Blood Urine Nitrite Urine Bilirubin Urine Urobilinogen Ur Leukocyte Esterase Urine WBC (Auto) Urine RBC (Auto) Ur Epithelial Cells Blood Type Antibody Screen 06/11/18 06/11/18 06/11/18 00:23 00:23 00:23 WBC RBC Hgb Hct MCV MCH MCHC RDW Plt Count MPV Absolute Neuts (auto) Neutrophils % Lymphocytes % Monocytes % Eosinophils % Basophils % Nucleated RBC % PT with INR INR Sodium Potassium Chloride Carbon Dioxide Anion Gap BUN Creatinine Creat Clearance w eGFR POC Glucometer Random Glucose Hemoglobin A1c % Lactic Acid 1.5 Calcium Phosphorus Magnesium Total Bilirubin AST ALT Alkaline Phosphatase Troponin I < 0.02 Total Protein Albumin Lipase 278 Urine Color Urine Appearance Urine pH Ur Specific [place] Urine Protein Urine Glucose (UA) Urine Ketones Urine Blood Urine Nitrite Urine Bilirubin Urine Urobilinogen Ur Leukocyte Esterase Urine WBC (Auto) Urine RBC (Auto) Ur Epithelial Cells Blood Type Antibody Screen 06/11/18 06/11/18 06/11/18 02:45 05:46 06:00 WBC RBC Hgb Hct MCV MCH MCHC RDW Plt Count MPV Absolute Neuts (auto) Neutrophils % Lymphocytes % Monocytes % Eosinophils % Basophils % Nucleated RBC % PT with INR INR Sodium Potassium Chloride Carbon Dioxide Anion Gap BUN Creatinine Creat Clearance w eGFR POC Glucometer Random Glucose Hemoglobin A1c % 8.3 H Lactic Acid Calcium Phosphorus Magnesium Total Bilirubin AST ALT Alkaline Phosphatase Troponin I Total Protein Albumin Lipase Urine Color Yellow Urine Appearance Clear Urine pH 6.0 Ur Specific [place] 1.018 Urine Protein Negative Urine Glucose (UA) 3+ H Urine Ketones 1+ H Urine Blood Negative Urine Nitrite Negative Urine Bilirubin Negative Urine Urobilinogen 2.0 H Ur Leukocyte Esterase Trace Urine WBC (Auto) 5 Urine RBC (Auto) 1 Ur Epithelial Cells Rare Blood Type A POSITIVE Antibody Screen Negative 06/11/18 06/11/18 06/11/18 06:45 06:45 06:45 WBC 6.5 RBC 4.06 Hgb 12.2 Hct 36.0 MCV 88.5 MCH 30.0 MCHC 33.9 RDW 14.7 Plt Count 173 MPV 9.2 Absolute Neuts (auto) 4.6 Neutrophils % 70.1 Lymphocytes % 21.9 D Monocytes % 7.2 Eosinophils % 0.3 Basophils % 0.5 Nucleated RBC % 0 PT with INR 12.30 INR 1.04 Sodium 139 Potassium 3.7 Chloride 109 H Carbon Dioxide 24 Anion Gap 6 L BUN 11 Creatinine 0.6 Creat Clearance w eGFR > 60 POC Glucometer Random Glucose 216 H Hemoglobin A1c % Lactic Acid Calcium 9.9 Phosphorus 2.3 L Magnesium 1.7 L Total Bilirubin 3.0 H AST 551 H ALT 991 H Alkaline Phosphatase 393 H Troponin I Total Protein 6.2 L Albumin 3.2 L Lipase Urine Color Urine Appearance Urine pH Ur Specific [place] Urine Protein Urine Glucose (UA) Urine Ketones Urine Blood Urine Nitrite Urine Bilirubin Urine Urobilinogen Ur Leukocyte Esterase Urine WBC (Auto) Urine RBC (Auto) Ur Epithelial Cells Blood Type Antibody Screen 06/11/18 06/11/18 06/11/18 07:10 08:20 11:37 WBC RBC Hgb Hct MCV MCH MCHC RDW Plt Count MPV Absolute Neuts (auto) Neutrophils % Lymphocytes % Monocytes % Eosinophils % Basophils % Nucleated RBC % PT with INR INR Sodium Potassium Chloride Carbon Dioxide Anion Gap BUN Creatinine Creat Clearance w eGFR POC Glucometer 207 135 Random Glucose Hemoglobin A1c % Lactic Acid Calcium Phosphorus Magnesium Total Bilirubin AST ALT Alkaline Phosphatase Troponin I Total Protein Albumin Lipase Urine Color Urine Appearance Urine pH Ur Specific [place] Urine Protein Urine Glucose (UA) Urine Ketones Urine Blood Urine Nitrite Urine Bilirubin Urine Urobilinogen Ur Leukocyte Esterase Urine WBC (Auto) Urine RBC (Auto) Ur Epithelial Cells Blood Type A POSITIVE Antibody Screen 06/11/18 16:42 WBC RBC Hgb Hct MCV MCH MCHC RDW Plt Count MPV Absolute Neuts (auto) Neutrophils % Lymphocytes % Monocytes % Eosinophils % Basophils % Nucleated RBC % PT with INR INR Sodium Potassium Chloride Carbon Dioxide Anion Gap BUN Creatinine Creat Clearance w eGFR POC Glucometer 161 Random Glucose Hemoglobin A1c % Lactic Acid Calcium Phosphorus Magnesium Total Bilirubin AST ALT Alkaline Phosphatase Troponin I Total Protein Albumin Lipase Urine Color Urine Appearance Urine pH Ur Specific [place] Urine Protein Urine Glucose (UA) Urine Ketones Urine Blood Urine Nitrite Urine Bilirubin Urine Urobilinogen Ur Leukocyte Esterase Urine WBC (Auto) Urine RBC (Auto) Ur Epithelial Cells Blood Type Antibody Screen Active Medications Generic Name Dose Route Start Last Admin Trade Name Freq PRN Reason Stop Dose Admin Sodium Chloride 1,000 mls @ 125 mls/hr 06/11/18 04:00 06/11/18 09:36 Normal Saline - IV 06/12/18 11:59 125 mls/hr ASDIR MINERVA Administration Sodium Chloride 1,000 mls @ 125 mls/hr 06/11/18 10:00 06/11/18 13:28 Normal Saline - IV Not Given ASDIR MINERVA Piperacillin Sod/Tazobactam 50 mls @ 100 mls/hr 06/11/18 15:45 06/11/18 17:01 Sod 3.375 gm/ Dextrose IVPB Not Given Q8H-IV MINERVA Protocol Insulin Aspart 1 vial 06/11/18 07:00 06/11/18 16:52 Novolog Vial Sliding Scale - SQ Not Given TIDAC [facility] Protocol Pantoprazole Sodium 40 mg 06/11/18 10:00 06/11/18 10:22 Protonix Iv IVPUSH 40 mg DAILY MINERVA Administration ASSESSMENT/PLAN: Pt. is a 72 Y/O. lady w/ PMHx. of NIDDM, HTN, HLD, and Hypothyroidism presents with 3 days of abdominal pain. #Abdominal Pain 2/2 cholecystitis Abdominal US positive for gallstones, thickened GB wall (4mm) and CBD dilatation (11mm) MRCP---> Cholelithiasis suggestive of cholecystitis. Significantly distended cystic duct containing stones and sludge. Choledocholithiasis without CBD dilation but with intrahepatic billiary ductal dilation. AST: 551; ALT: 991, TBili-3.0, ALP 393 -Dr Cowart on board -Dr Mascorro on board -Dr Siddiqui on board - Zosyn 3.375 Q8H #NIDDM Random Glucose 308 3+ Glucose and 1+ ketones in urine HgbA1c 8.3% ISS TIDAC BGM TIDAC Will withold oral hypoglycemics #FEN NS @ 125/hr Monitor Electrolytes NPO #DVT PPx. SCD's Visit type - Emergency Visit Emergency Visit: Yes ED Registration Date: 06/11/18 Care time: The patient presented to the Emergency Department on the above date and was hospitalized for further evaluation of their emergent condition. - New Patient This patient is new to me today: Yes Date on this admission: 06/11/18 - Critical Care Critical Care patient: No - Discharge Referral Referred to [facility] Med P.C.: No
--- NOTE | 2018-06-11 20:09 | CONSULT ---
Consult Consult Specialty:: General Surgery Referred by:: Hospitalist Team Reason for Consultation:: gallstones, possible cholecystitis or cbd stones - History of Present Illness Chief Complaint: epigastric pain History of Present Illness: 72yo Yemeni F with multiple medical problems admitted yesterday through ER to medicine with epigastric pain. She denies F/C, N/V, diarrhea, but does admit to chronic constipation. In ER, she was afebrile, wbc normal, lipase normal, LFTs elevated and labs suggestive of some dehydration and hyperglycemia. She received IV fluids, and US showed multiple gallstones in contracted gallbladder with dilated CBD and intrahepatic ducts. She has also been started on antibiotics with ID on board. GI has seen patient, and MRCP was done today showing multiple gallstones, multiple filling defects in biliary ducts and dilated intrahepatic ducts, with a couple of pancreatic cysts as well. Surgery was asked to assess. She is seen and examined in bed, and describes epigastric pain, but minimal associated symptoms before admission. She states her pain is now minimal, and she does feel better. She is hungry and has a bit of a headache. Previous surgeries include , Pfannenstiel hernia repair in [facility] after that and cystoscopy for kidney stones. She has arthritis, HTN, DM, HLD, hypothyroidism and takes 5 medicines, but does not know what. She denies daily aspirin use. Takes prn tylenol or ibuprofen for pain at home. - History Source History Provided By: Patient, Medical Record Limitations to Obtaining History: Language Barrier (Khmer - managed H&P with pt's limited [place]er) - Past Medical History Cardio/Vascular: Yes: HTN, Hyperlipdemia Gastrointestinal: Yes: Constipation Renal/: Yes: Renal Calculi Reproductive: Yes: Postmenopausal Musculoskeletal: Yes: Osteoarthritis Endocrine: Yes: Diabetes Mellitus, Hypothyroidism - Past Surgical History Past Surgical History: Yes: , Hernia Repair (Pfannenstiel after C/S - done in [facility]) Additional Surgical History: cystoscopy for renal stones - Alcohol/Substance Use Hx Alcohol Use: No History of Substance Use: reports: None - Smoking History Smoking history: Never smoked Have you smoked in the past 12 months: No - Social History Usual Living Arrangement: Other ADL: Independent Home Medications - Allergies Allergies/Adverse Reactions: Allergies Allergy/AdvReac Type Severity Reaction Status Date / Time No Known Allergies Allergy Verified 06/10/18 22:15 - Home Medications Home Medications: Ambulatory Orders Unobtainable 06/11/18 Home Medications (free text): pt reports taking 5 medications - something for cholesterol, blood pressure, diabetes, thyroid and something else - does not know names Family Disease History - Family Disease History Family Disease History: CA: Mother (gastric) Review of Systems - Review of Systems Constitutional: denies: Chills, Fever Eyes: denies: Blurred Vision, Recent Change in Vision HENT: denies: Difficult Swallowing, Throat Pain Neck: denies: Swollen Glands, Tenderness Cardiovascular: denies: Chest Pain, Palpitations Respiratory: denies: Cough, SOB Gastrointestinal: reports: Abdominal Pain (with hpi), Constipation. denies: Diarrhea, Nausea, Vomiting Genitourinary: denies: Burning, Dysuria Musculoskeletal: reports: Joint Pain (arthritis at times). denies: Back Pain Integumentary: denies: Change in Color, Rash Neurological: denies: Dizziness, Headache Physical Exam Vital Signs: Vital Signs Temperature 97.4 F L 06/11/18 18:00 Pulse Rate 78 06/11/18 18:00 Respiratory Rate 20 06/11/18 18:00 Blood Pressure 166/82 06/11/18 18:00 O2 Sat by Pulse Oximetry (%) 97 06/11/18 07:00 Constitutional: Yes: No Distress, Calm, Obese Eyes: Yes: Conjunctiva Clear, EOM Intact. No: Sclera Icterus HENT: Yes: Atraumatic, Normocephalic Neck: Yes: Supple, Trachea Midline Cardiovascular: Yes: Regular Rate and Rhythm Respiratory: Yes: Regular, CTA Bilaterally Gastrointestinal: Yes: Soft, Abdomen, Obese, Hypoactive Bowel Sounds, Tenderness , Epigastrium (minimal). No: Tenderness (no RUQ tenderness), Tenderness, Rebound (no yolie/guard) ...Rectal Exam: Yes: Deferred Renal/: No: CVA Tenderness - Left, CVA Tenderness - Right Musculoskeletal: No: Joint Stiffness, Joint Swelling Extremities: No: Cool, Cyanosis Edema: No Peripheral Pulses WNL: Yes Integumentary: No: Jaundice, Rash Neurological: Yes: Alert, Oriented Psychiatric: Yes: Alert, Oriented Labs: CBC, BMP 06/11/18 06:45 06/11/18 06:45 CMP Sodium 139 mmol/L (136-145) 06/11/18 06:45 Potassium 3.7 mmol/L (3.5-5.1) 06/11/18 06:45 Chloride 109 mmol/L (98-107) H 06/11/18 06:45 Carbon Dioxide 24 mmol/L (21-32) 06/11/18 06:45 Anion Gap 6 MMOL/L (8-16) L 06/11/18 06:45 BUN 11 mg/dL (7-18) 06/11/18 06:45 Creatinine 0.6 mg/dL (0.55-1.3) 06/11/18 06:45 Creat Clearance w eGFR > 60 (>60) 06/11/18 06:45 POC Glucometer 161 UNITS (80-120) 06/11/18 16:42 Random Glucose 216 mg/dL (74-106) H 06/11/18 06:45 Hemoglobin A1c % 8.3 % (4.2-6.3) H 06/11/18 06:00 Lactic Acid 1.5 mmol/L (0.4-2.0) 06/11/18 00:23 Calcium 9.9 mg/dL (8.5-10.1) 06/11/18 06:45 Phosphorus 2.3 mg/dL (2.5-4.9) L 06/11/18 06:45 Magnesium 1.7 mg/dL (1.8-2.4) L 06/11/18 06:45 Total Bilirubin 3.0 mg/dL (0.2-1) H 06/11/18 06:45 AST 551 U/L (15-37) H 06/11/18 06:45 ALT 991 U/L (13-61) H 06/11/18 06:45 Alkaline Phosphatase 393 U/L (45-117) H 06/11/18 06:45 Troponin I < 0.02 ng/ml (0.00-0.05) 06/11/18 00:23 Total Protein 6.2 g/dl (6.4-8.2) L 06/11/18 06:45 Albumin 3.2 g/dl (3.4-5.0) L 06/11/18 06:45 Lipase 278 U/L (73-393) 06/11/18 00:23 A1C elevated K, Phos and Mg low bili down from 3.4 LFTs remain elevated but coming down lipase normal GGT also up today INR, PTT INR 1.04 (0.83-1.09) 06/11/18 06:45 Urine Test Results Urine Color Yellow 06/11/18 02:45 Urine Appearance Clear 06/11/18 02:45 Urine pH 6.0 (5.0-8.0) 06/11/18 02:45 Ur Specific [place] 1.018 (1.010-1.035) 06/11/18 02:45 Urine Protein Negative (NEGATIVE) 06/11/18 02:45 Urine Glucose (UA) 3+ (NEGATIVE) H 06/11/18 02:45 Urine Ketones 1+ (NEGATIVE) H 06/11/18 02:45 Urine Blood Negative (NEGATIVE) 06/11/18 02:45 Urine Nitrite Negative (NEGATIVE) 06/11/18 02:45 Urine Bilirubin Negative (<2.0 mg/dL) 06/11/18 02:45 Ur Leukocyte Esterase Trace (NEGATIVE) 06/11/18 02:45 Ur Epithelial Cells Rare /HPF (FEW) 06/11/18 02:45 Imaging - Results Ultrasound: Report Reviewed, Image Reviewed (contracted gallbladder w/multiple stones, dilated cbd, no clear cholecystitis) MRI: Report Reviewed, Image Reviewed (images reviewed - multiple stones in gb, mild edema suggestive of cholecystitis, multiple filling defects in cbd with intrahepatic dilation, also stones in cystic duct, lobulated cyst in pancreatic uncinate and small one in proximal tail) Problem List - Problems (1) Calculus gallbladder and bile duct w/acute cholecystitis and obstructn Assessment/Plan: admitted to medicine NPO/IVF except essential meds pain meds prn, nonnarcotics first line Zosyn per ID trend labs, including lipase MRCP with multiple ductal stones for ERCP with GI in am need to trend labs am to ensure no post-ERCP pancreatitis will follow with you can discuss timing of cholecystectomy after above need to get list of home meds - perhaps pt knows pharmacy to contact? Code(s): K80.63 - CALCULUS OF GB AND BILE DUCT W ACUTE CHOLECYST W OBSTRUCTION (2) Epigastric pain Code(s): R10.13 - EPIGASTRIC PAIN (3) Controlled diabetes mellitus with hyperglycemia, without long-term current use of insulin Assessment/Plan: A1C is elevated need to know home meds pt may need consultation with roll reclaimer? referral to endo? Code(s): E11.65 - TYPE 2 DIABETES MELLITUS WITH HYPERGLYCEMIA Qualifiers: Diabetes mellitus type: type 2 Qualified Code(s): E11.65 - Type 2 diabetes mellitus with hyperglycemia (4) Hypertension Assessment/Plan: don't know home meds need to know if on beta miguel angel at home Code(s): I10 - ESSENTIAL (PRIMARY) HYPERTENSION Qualifiers: Hypertension type: essential hypertension Qualified Code(s): I10 - Essential (primary) hypertension (5) Hypothyroidism Assessment/Plan: consider checking TSH home med unknown Code(s): E03.9 - HYPOTHYROIDISM, UNSPECIFIED Qualifiers: Hypothyroidism type: unspecified Qualified Code(s): E03.9 - Hypothyroidism , unspecified (6) Hyperlipidemia Assessment/Plan: home med unknown Code(s): E78.5 - HYPERLIPIDEMIA, UNSPECIFIED Qualifiers: Hyperlipidemia type: unspecified Qualified Code(s): E78.5 - Hyperlipidemia , unspecified (7) Obesity (BMI 30.0-34.9) Code(s): E66.9 - OBESITY, UNSPECIFIED
--- NOTE | 2018-06-11 20:45 | PN ---
Progress Note (short form) - Note Progress Note: Had discussion with Ms. Hassan via [employer] Managed Servicespersonal lines account executive [id number]. Explained that she will require ERCP for further evaluation of her bile duct and for removal of the bile duct stones noted on MRCP. I explained that this would be needed to be performed prior to cholecystectomy. Discussed potential risks of the procedure like but not limited to bleeding, perforation reuiring surgery to repair, infection, sedation medication effects and pancreatitis (5-10 % of cases) all of which could be potentially life threatening. I explained that stones left in the bile duct can lead to a life threatening infection called cholangitis. I explained that my colleague Dr. Foss has agreed to the procedure. At her request, I called her son Kaushal and discussed the plan with him as well ([phone]). He also confirmed that she is not on any blood thinners or antipltelet agents. NPO except meds IV Abx AM Labs Indocin suppository content development manager to procedure
[2018-06-11] MEDS ORDERED: INDOMETHACIN 50 MG RECTAL SUPPOSITORY PR ONE (20:53)
[2018-06-11] MEDS: amLODIPine BESYLATE 5 MG TABLET (FP) PO SCH (22:33)
[2018-06-11] MEDS: ATORVASTATIN CA 20 MG TABLET (FP) PO SCH (22:33)
[2018-06-12] MEDS ORDERED: PIPERACILLIN/TAZOBACTAM 3.375 GM VIAL IVPB ONE ×3 (02:52→17:12)
[2018-06-12] MEDS ORDERED: DEXTROSE 5%-WATER - 50 ML IVPB ONE ×3 (02:53→17:12)
[2018-06-12] MEDS: PIPERACILLIN/TAZOB 3.375 GM 3.375 GM in DEXTROSE 5%-WATER - 50 ML IVPB SCH ×3 (02:57→17:34)
[2018-06-12] MEDS: LEVOTHYROXINE NA 75 MCG TABLET (FP) PO SCH (06:35)
[2018-06-12] MEDS: INSULIN SLIDING SCALE (NOVOLOG) 1 VIAL SQ SCH ×3 (06:35→17:34)
[2018-06-12] MEDS: SODIUM CHLORIDE 1,000 ML IV SCH ×2 (06:35→09:49)
[2018-06-12] MEDS ORDERED: INSULIN (NOVOLOG) ASPART 100 UNITS/ML 10ML VIAL ONE ×2 (06:48→17:27)
[2018-06-12 08:07] LABS: BASO % 0.6 % (0-2.0); EOS % 2.5 % (0-4.5); HEMATOCRIT 36.4 % (32.4-45.2); HEMOGLOBIN 12.2 GM/dL (10.7-15.3); LYMPH % 30.2 % (8-40); MCH 29.9 pg (25.7-33.7); MCHC 33.6 g/dl (32.0-36.0); MEAN CELL VOLUME 88.9 fl (80-96); MEAN PLT VOLUME 9.4 fl (7.5-11.1); MONO % 6.7 % (3.8-10.2); PLATELET COUNT 164 K/MM3 (134-434); RDW 14.9 % (11.6-15.6); WHITE BLOOD COUNT 4.6 K/mm3 (4.0-10.0)
[2018-06-12 08:39] LABS: ANION GAP 5 MMOL/L (8-16); BLOOD UREA NITROGEN 7 mg/dL (7-18); CALCIUM 9.4 mg/dL (8.5-10.1); CHLORIDE 111 mmol/L (98-107); CO2 24 mmol/L (21-32); CREATININE 0.4 mg/dL (0.55-1.3); GLUCOSE,RANDOM 175 mg/dL (74-106); MAGNESIUM 1.7 mg/dL (1.8-2.4); POTASSIUM 3.5 mmol/L (3.5-5.1); SODIUM 140 mmol/L (136-145)
[2018-06-12 08:48] LABS: BILIRUBIN,DIRECT 0.6 mg/dL (0.0-0.2); BILIRUBIN,TOTAL 1.2 mg/dL (0.2-1); TOT PROT 6.1 g/dl (6.4-8.2)
--- NOTE | 2018-06-12 09:20 | PN ---
Teaching Attending Note Name of Resident: Pedro Sam ATTENDING PHYSICIAN STATEMENT I saw and evaluated the patient. I reviewed the resident's note and discussed the case with the resident. I agree with the resident's findings and plan as documented. SUBJECTIVE: Patient is going for ERCP today OBJECTIVE: Vital Signs Temperature 98.1 F 06/12/18 05:36 Pulse Rate 70 06/12/18 05:36 Respiratory Rate 20 06/12/18 05:36 Blood Pressure 121/53 L 06/12/18 05:36 O2 Sat by Pulse Oximetry (%) 97 06/11/18 21:00 GENERAL: Austrian speaking adult female. in NAD HEAD: Normal with no signs of trauma. EYES: No scleral icterus EOMI ENT: MMM, LUNGS: CTAB HEART: RRR ABDOMEN: soft, No rebound or guarding or rigidity. EXTREMITIES: No CCE NEUROLOGICAL: Cranial nerves II through XII grossly intact. PSYCH: Normal mood, normal affect. CBCD WBC 4.6 K/mm3 (4.0-10.0) 06/12/18 07:00 RBC 4.10 M/mm3 (3.60-5.2) 06/12/18 07:00 Hgb 12.2 GM/dL (10.7-15.3) 06/12/18 07:00 Hct 36.4 % (32.4-45.2) 06/12/18 07:00 MCV 88.9 fl (80-96) 06/12/18 07:00 MCHC 33.6 g/dl (32.0-36.0) 06/12/18 07:00 RDW 14.9 % (11.6-15.6) 06/12/18 07:00 Plt Count 164 K/MM3 (134-434) 06/12/18 07:00 MPV 9.4 fl (7.5-11.1) 06/12/18 07:00 CMP Sodium 140 mmol/L (136-145) 06/12/18 07:00 Potassium 3.5 mmol/L (3.5-5.1) 06/12/18 07:00 Chloride 111 mmol/L (98-107) H 06/12/18 07:00 Carbon Dioxide 24 mmol/L (21-32) 06/12/18 07:00 Anion Gap 5 MMOL/L (8-16) L 06/12/18 07:00 BUN 7 mg/dL (7-18) 06/12/18 07:00 Creatinine 0.4 mg/dL (0.55-1.3) L 06/12/18 07:00 Creat Clearance w eGFR > 60 (>60) 06/12/18 07:00 Random Glucose 175 mg/dL (74-106) H 06/12/18 07:00 Calcium 9.4 mg/dL (8.5-10.1) 06/12/18 07:00 Total Bilirubin 1.2 mg/dL (0.2-1) H 06/12/18 07:00 AST 277 U/L (15-37) H 06/12/18 07:00 ALT 816 U/L (13-61) H 06/12/18 07:00 Alkaline Phosphatase 344 U/L (45-117) H 06/12/18 07:00 Total Protein 6.1 g/dl (6.4-8.2) L 06/12/18 07:00 Albumin 3.0 g/dl (3.4-5.0) L 06/12/18 07:00 CARDIAC ENZYMES Troponin I < 0.02 ng/ml (0.00-0.05) 06/11/18 00:23 Current Medications Generic Name Dose Route Start Last Admin Trade Name Jeffreyq PRN Reason Stop Dose Admin Amlodipine Besylate 5 mg 06/11/18 21:00 06/11/18 22:33 Norvasc - PO 5 mg DAILY [facility] Administration Atorvastatin Calcium 20 mg 06/11/18 22:00 06/11/18 22:33 Lipitor - PO 20 mg HS [facility] Administration Sodium Chloride 1,000 mls @ 125 mls/hr 06/11/18 10:00 06/11/18 13:28 Normal Saline - IV Not Given ASDIR [facility] Piperacillin Sod/Tazobactam 50 mls @ 100 mls/hr 06/11/18 15:45 06/12/18 02:57 Sod 3.375 gm/ Dextrose IVPB 100 mls/hr Q8H-IV [facility] Administration Protocol Insulin Aspart 1 vial 06/11/18 07:00 06/12/18 06:35 Novolog Vial Sliding Scale - SQ Not Given TIDAC [facility] Protocol Levothyroxine Sodium 75 mcg 06/12/18 07:00 06/12/18 06:35 Synthroid - PO 75 mcg DAILY@0700 [facility] Administration Pantoprazole Sodium 40 mg 06/11/18 10:00 06/11/18 10:22 Protonix Iv IVPUSH 40 mg DAILY [facility] Administration Home Medications Medication Instructions Recorded Amlodipine Besylate/Benazepril 1 each PO DAILY 07/06/12 [Lotrel 5-20 mg Capsule] Aspirin [ASA -] 81 mg PO HS 07/06/12 Atorvastatin Ca [Lipitor] 20 mg PO HS 07/06/12 Glipizide [Glipizide Xl] 10 mg PO DAILY 07/06/12 metFORMIN HCL [Glucophage -] 500 mg PO BID 07/06/12 Unobtainable 06/11/18 ASSESSMENT AND PLAN: Patient is a 72yo female with PMHx of HTN, HLP, DM ,hypothyroidism who presented with N/V and abdominal pain, and was found to have transaminitis and dilatation of CBD . # Acute Transaminitis : with CBD stone, for ERCP today by Dr. Ralph especially with rising LFTS. US with gall stones in gall bladder and CBD dilation of 10 mm. On IV antibiotics continue Zosyn , ID on the case. On IV PPI # DM : SSI q 6 hr, while NPO . # HTN: on Norvasc continue # HLD: On Lipitor low dose continue DVT Px: SCds
[2018-06-12] MEDS: MAGNESIUM SULF 50% (8.12 MEQ/2 ML-1 GM VIAL) IVPB ONE ×2 (09:47→09:49)
[2018-06-12] MEDS: PANTOPRAZOLE SODIUM 40 MG VIAL IVPUSH SCH (09:49)
[2018-06-12] MEDS ORDERED: PIPERACILLIN/TAZOB 3.375 GM 3.375 GM in DEXTROSE 5%-WATER - 50 ML IVPB SCH (10:00)
--- NOTE | 2018-06-12 10:40 | PN ---
Progress Note, Physician History of Present Illness: stable no new issues - Current Medication List Current Medications: Active Medications Amlodipine Besylate (Norvasc -) 5 mg PO DAILY [facility] Last Admin: 06/11/18 22:33 Dose: 5 mg Atorvastatin Calcium (Lipitor -) 20 mg PO HS [facility] Last Admin: 06/11/18 22:33 Dose: 20 mg Sodium Chloride (Normal Saline -) 1,000 mls @ 125 mls/hr IV ASDIR [facility] Last Admin: 06/12/18 09:49 Dose: 125 mls/hr Piperacillin Sod/Tazobactam (Sod 3.375 gm/ Dextrose) 50 mls @ 100 mls/hr IVPB Q8H-IV [facility]; Protocol Last Admin: 06/12/18 02:57 Dose: 100 mls/hr Insulin Aspart (Novolog Vial Sliding Scale -) 1 vial SQ TIDAC [facility]; Protocol Last Admin: 06/12/18 06:35 Dose: Not Given Levothyroxine Sodium (Synthroid -) 75 mcg PO DAILY@0700 [facility] Last Admin: 06/12/18 06:35 Dose: 75 mcg Pantoprazole Sodium (Protonix Iv) 40 mg IVPUSH DAILY [facility] Last Admin: 06/12/18 09:49 Dose: 40 mg - Objective Vital Signs: Vital Signs Temperature 98.1 F 06/12/18 05:36 Pulse Rate 74 06/12/18 09:00 Respiratory Rate 18 06/12/18 09:00 Blood Pressure 142/54 L 06/12/18 09:00 O2 Sat by Pulse Oximetry (%) 97 06/11/18 21:00 Constitutional: Yes: No Distress, Calm Cardiovascular: Yes: Regular Rate and Rhythm Respiratory: Yes: Regular, CTA Bilaterally Gastrointestinal: Yes: Normal Bowel Sounds, Soft Musculoskeletal: Yes: WNL Extremities: Yes: WNL Neurological: Yes: Alert, Oriented Psychiatric: Yes: Alert, Oriented Labs: CBC, BMP 06/12/18 07:00 06/12/18 07:00 INR, PTT INR 1.04 (0.83-1.09) 06/11/18 06:45 Assessment/Plan Problem List - Problems (1) Calculus gallbladder and bile duct w/acute cholecystitis and obstructn Code(s): K80.63 - CALCULUS OF GB AND BILE DUCT W ACUTE CHOLECYST W OBSTRUCTION (2) Epigastric pain Code(s): R10.13 - EPIGASTRIC PAIN (3) Controlled diabetes mellitus with hyperglycemia, without long-term current use of insulin Code(s): E11.65 - TYPE 2 DIABETES MELLITUS WITH HYPERGLYCEMIA Qualifiers: Diabetes mellitus type: type 2 Qualified Code(s): E11.65 - Type 2 diabetes mellitus with hyperglycemia (4) Hypertension Code(s): I10 - ESSENTIAL (PRIMARY) HYPERTENSION Qualifiers: Hypertension type: essential hypertension Qualified Code(s): I10 - Essential (primary) hypertension (5) Hypothyroidism Code(s): E03.9 - HYPOTHYROIDISM, UNSPECIFIED Qualifiers: Hypothyroidism type: unspecified Qualified Code(s): E03.9 - Hypothyroidism , unspecified (6) Hyperlipidemia Code(s): E78.5 - HYPERLIPIDEMIA, UNSPECIFIED Qualifiers: Hyperlipidemia type: unspecified Qualified Code(s): E78.5 - Hyperlipidemia , unspecified (7) Obesity (BMI 30.0-34.9) Code(s): E66.9 - OBESITY, UNSPECIFIED plan continue abx await for final plan
[2018-06-12] MEDS ORDERED: GLUCAGON 1 MG KIT ONE (11:11)
--- NOTE | 2018-06-12 12:17 | PN ---
Progress Note (short form) - Note Progress Note: GI Procedure NOte: Please see ERCP report. Multiple stones extracted but required a stent as the sphincterotomy became very swollen. Post procedure orders written. Will contact the son.
[2018-06-12] MEDS ORDERED: LACTATED RINGERS SOLUTION 1,000 ML/1,000 ML INFUS.BAG IV SCH ×2 (12:30→18:30)
[2018-06-12] MEDS: amLODIPine BESYLATE 5 MG TABLET (FP) PO SCH (13:42)
--- NOTE | 2018-06-12 18:27 | PN ---
Physical Exam: SUBJECTIVE: Patient seen and examined at bedside. No acute events overnight. Denies abdominal pain. OBJECTIVE: Vital Signs Period Temp Pulse Resp BP Sys/Farah Pulse Ox Last 24 Hr 97.8 F-98.7 F 66-77 18-20 121-155/53-86 94-100 GENERAL: No acute distress. Very pleasant HEAD: Normal with no signs of trauma. EYES: No scleral icterus EOMI ENT: MMM LUNGS: CTAB HEART: RRR ABDOMEN: Nondistended nontender. Allen's sign -. No rebound or guarding or rigidity. EXTREMITIES: No CCE NEUROLOGICAL: Cranial nerves II through XII grossly intact. PSYCH: Normal mood, normal affect. Laboratory Results - last 24 hr 06/12/18 06/12/18 06/12/18 06:34 07:00 07:00 WBC 4.6 RBC 4.10 Hgb 12.2 Hct 36.4 MCV 88.9 MCH 29.9 MCHC 33.6 RDW 14.9 Plt Count 164 MPV 9.4 Absolute Neuts (auto) 2.7 Neutrophils % 60.0 Lymphocytes % 30.2 D Monocytes % 6.7 Eosinophils % 2.5 D Basophils % 0.6 Nucleated RBC % 0 Sodium 140 Potassium 3.5 Chloride 111 H Carbon Dioxide 24 Anion Gap 5 L BUN 7 Creatinine 0.4 L Creat Clearance w eGFR > 60 POC Glucometer 173 Random Glucose 175 H Calcium 9.4 Magnesium 1.7 L Total Bilirubin Direct Bilirubin AST ALT Alkaline Phosphatase Total Protein Albumin Lipase 06/12/18 06/12/18 06/12/18 07:00 07:00 17:24 WBC RBC Hgb Hct MCV MCH MCHC RDW Plt Count MPV Absolute Neuts (auto) Neutrophils % Lymphocytes % Monocytes % Eosinophils % Basophils % Nucleated RBC % Sodium Potassium Chloride Carbon Dioxide Anion Gap BUN Creatinine Creat Clearance w eGFR POC Glucometer 239 Random Glucose Calcium Magnesium Total Bilirubin 1.2 H Direct Bilirubin 0.6 H AST 277 H ALT 816 H Alkaline Phosphatase 344 H Total Protein 6.1 L Albumin 3.0 L Lipase 348 Active Medications Generic Name Dose Route Start Last Admin Trade Name Freq PRN Reason Stop Dose Admin Amlodipine Besylate 5 mg 06/11/18 21:00 06/12/18 13:42 Norvasc - PO 5 mg DAILY [facility] Administration Atorvastatin Calcium 20 mg 06/11/18 22:00 06/11/18 22:33 Lipitor - PO 20 mg HS [facility] Administration Piperacillin Sod/Tazobactam 50 mls @ 100 mls/hr 06/11/18 15:45 06/12/18 17:34 Sod 3.375 gm/ Dextrose IVPB 100 mls/hr Q8H-IV [facility] Administration Protocol Lactated Ringer's 1,000 ml in 1,000 mls @ 175 mls/hr 06/12/18 12:30 Lactated Ringers Solution IV 06/12/18 18:30 ASDIR [facility] Lactated Ringer's 1,000 ml in 1,000 mls @ 150 mls/hr 06/12/18 18:30 Lactated Ringers Solution IV 06/13/18 00:30 ASDIR [facility] Lactated Ringer's 1,000 ml in 1,000 mls @ 125 mls/hr 06/13/18 00:30 Lactated Ringers Solution IV [facility] Insulin Aspart 1 vial 06/11/18 07:00 06/12/18 17:34 Novolog Vial Sliding Scale - SQ 2 units TIDAC [facility] Administration Protocol Levothyroxine Sodium 75 mcg 06/12/18 07:00 06/12/18 06:35 Synthroid - PO 75 mcg DAILY@0700 [facility] Administration Pantoprazole Sodium 40 mg 06/11/18 10:00 06/12/18 09:49 Protonix Iv IVPUSH 40 mg DAILY [facility] Administration ASSESSMENT/PLAN: Pt. is a 72 Y/O. lady w/ PMHx. of NIDDM, HTN, HLD, and Hypothyroidism presents with 3 days of abdominal pain. #Abdominal Pain 2/2 cholecystitis Abdominal US positive for gallstones, thickened GB wall (4mm) and CBD dilatation (11mm) MRCP---> Cholelithiasis suggestive of cholecystitis. Significantly distended cystic duct containing stones and sludge. Choledocholithiasis without CBD dilation but with intrahepatic billiary ductal dilation. S/P ERCP with Dr Xie. Multiple stones extracted but required a stent as the sphincterotomy became very swollen. AST: 551; ALT: 991, TBili-3.0, ALP 393 -Dr Cowart on board -Dr Mascorro on board -Dr Siddiqui on board - Zosyn 3.375 Q8H #NIDDM Random Glucose 308 3+ Glucose and 1+ ketones in urine HgbA1c 8.3% ISS TIDAC BGM TIDAC Will withold oral hypoglycemics #FEN LR @ 125/hr Monitor Electrolytes Clear Liquid #DVT PPx. SCD's Visit type - Emergency Visit Emergency Visit: Yes ED Registration Date: 06/11/18 Care time: The patient presented to the Emergency Department on the above date and was hospitalized for further evaluation of their emergent condition. - New Patient This patient is new to me today: No - Critical Care Critical Care patient: No - Discharge Referral Referred to [facility] Med P.C.: No
[2018-06-12] MEDS: ATORVASTATIN CA 20 MG TABLET (FP) PO SCH (21:20)
[2018-06-12] MEDS: LACTATED RINGERS SOLUTION 1,000 ML/1,000 ML INFUS.BAG IV SCH (21:21)
--- NOTE | 2018-06-12 22:52 | PN ---
Progress Note, Physician History of Present Illness: Pt with acute cholecystitis and choledocholithiasis, s/p ERCP today with stone extraction, sphincterotomy and stent placement. Feeling better, minimal pain, tolerated clears today without more pain. Seen and examined in bed. No nausea, no fevers. Spoke to patient with phone grinder set up operator jig for [place]. - Current Medication List Current Medications: Active Medications Amlodipine Besylate (Norvasc -) 5 mg PO DAILY [facility] Last Admin: 06/12/18 13:42 Dose: 5 mg Atorvastatin Calcium (Lipitor -) 20 mg PO HS [facility] Last Admin: 06/12/18 21:20 Dose: 20 mg Piperacillin Sod/Tazobactam (Sod 3.375 gm/ Dextrose) 50 mls @ 100 mls/hr IVPB Q8H-IV [facility]; Protocol Last Admin: 06/12/18 17:34 Dose: 100 mls/hr Lactated Ringer's (Lactated Ringers Solution) 1,000 ml in 1,000 mls @ 150 mls/ hr IV ASDIR [facility] Stop: 06/13/18 00:30 Last Admin: 06/12/18 20:42 Dose: Not Given Lactated Ringer's (Lactated Ringers Solution) 1,000 ml in 1,000 mls @ 125 mls/ hr IV ASDIR [facility] Last Admin: 06/12/18 21:21 Dose: 125 mls/hr Insulin Aspart (Novolog Vial Sliding Scale -) 1 vial SQ TIDAC [facility]; Protocol Last Admin: 06/12/18 17:34 Dose: 2 units Levothyroxine Sodium (Synthroid -) 75 mcg PO DAILY@0700 [facility] Last Admin: 06/12/18 06:35 Dose: 75 mcg Pantoprazole Sodium (Protonix Iv) 40 mg IVPUSH DAILY [facility] Last Admin: 06/12/18 09:49 Dose: 40 mg - Objective Vital Signs: Vital Signs Temperature 97.8 F 06/12/18 19:00 Pulse Rate 66 06/12/18 19:00 Respiratory Rate 20 06/12/18 19:00 Blood Pressure 144/58 L 06/12/18 19:00 O2 Sat by Pulse Oximetry (%) 94 L 06/12/18 13:17 Constitutional: Yes: Well Nourished, No Distress, Calm Eyes: Yes: Conjunctiva Clear, EOM Intact. No: Sclera Icterus HENT: Yes: Atraumatic, Normocephalic Gastrointestinal: Yes: Soft, Abdomen, Obese, Distention, Tenderness, Epigastrium (minimal). No: Tenderness, Rebound Extremities: No: Cool, Cyanosis Integumentary: No: Jaundice, Rash Neurological: Yes: Alert, Oriented Labs: CBC, BMP 06/12/18 07:00 06/12/18 07:00 CMP Sodium 140 mmol/L (136-145) 06/12/18 07:00 Potassium 3.5 mmol/L (3.5-5.1) 06/12/18 07:00 Chloride 111 mmol/L (98-107) H 06/12/18 07:00 Carbon Dioxide 24 mmol/L (21-32) 06/12/18 07:00 Anion Gap 5 MMOL/L (8-16) L 06/12/18 07:00 BUN 7 mg/dL (7-18) 06/12/18 07:00 Creatinine 0.4 mg/dL (0.55-1.3) L 06/12/18 07:00 Creat Clearance w eGFR > 60 (>60) 06/12/18 07:00 POC Glucometer 239 UNITS (80-120) 06/12/18 17:24 Random Glucose 175 mg/dL (74-106) H 06/12/18 07:00 Hemoglobin A1c % 8.3 % (4.2-6.3) H 06/11/18 06:00 Lactic Acid 1.5 mmol/L (0.4-2.0) 06/11/18 00:23 Calcium 9.4 mg/dL (8.5-10.1) 06/12/18 07:00 Phosphorus 2.3 mg/dL (2.5-4.9) L 06/11/18 06:45 Magnesium 1.7 mg/dL (1.8-2.4) L 06/12/18 07:00 Total Bilirubin 1.2 mg/dL (0.2-1) H 06/12/18 07:00 Direct Bilirubin 0.6 mg/dL (0.0-0.2) H 06/12/18 07:00 AST 277 U/L (15-37) H 06/12/18 07:00 ALT 816 U/L (13-61) H 06/12/18 07:00 Alkaline Phosphatase 344 U/L (45-117) H 06/12/18 07:00 Troponin I < 0.02 ng/ml (0.00-0.05) 06/11/18 00:23 Total Protein 6.1 g/dl (6.4-8.2) L 06/12/18 07:00 Albumin 3.0 g/dl (3.4-5.0) L 06/12/18 07:00 Lipase 348 U/L (73-393) 06/12/18 07:00 LFTs trending down, wbc normal Problem List - Problems (1) Calculus gallbladder and bile duct w/acute cholecystitis and obstructn Assessment/Plan: tolerating clears, NPO after midnight pain meds prn, nonnarcotics first line Zosyn per ID trend labs in am, including lipase ERCP with multiple ductal stones extracted, stent left for swollen sphincterotomy presuming no post-ERCP pancreatitis, may be able to do lap neymar tomorrow Discussed with patient via phone grinder set up operator jig for [place], risks, benefits and alternatives of laparoscopic possible open cholecystectomy, including but not limited to bleeding, infection, injury to adjacent structures, bile leak or ductal injury, intraabdominal abscess, incisional hernia, need for further procedures, ; alternatives include antibiotics, delayed or no surgery - risks of this include recurrence of cholecystitis, cholangitis, pancreatitis, choledocholithiasis, . Patient desires to proceed with operation - informed consent signed for same. Will plan for OR tomorrow afternoon pending am labs and clinical exam need to get list of home meds - perhaps pt knows pharmacy to contact? Code(s): K80.63 - CALCULUS OF GB AND BILE DUCT W ACUTE CHOLECYST W OBSTRUCTION (2) Epigastric pain Code(s): R10.13 - EPIGASTRIC PAIN (3) Controlled diabetes mellitus with hyperglycemia, without long-term current use of insulin Code(s): E11.65 - TYPE 2 DIABETES MELLITUS WITH HYPERGLYCEMIA Qualifiers: Diabetes mellitus type: type 2 Qualified Code(s): E11.65 - Type 2 diabetes mellitus with hyperglycemia (4) Obesity (BMI 30.0-34.9) Code(s): E66.9 - OBESITY, UNSPECIFIED (5) Hypertension Code(s): I10 - ESSENTIAL (PRIMARY) HYPERTENSION Qualifiers: Hypertension type: essential hypertension Qualified Code(s): I10 - Essential (primary) hypertension (6) Hypothyroidism Code(s): E03.9 - HYPOTHYROIDISM, UNSPECIFIED Qualifiers: Hypothyroidism type: unspecified Qualified Code(s): E03.9 - Hypothyroidism , unspecified (7) Hyperlipidemia Code(s): E78.5 - HYPERLIPIDEMIA, UNSPECIFIED Qualifiers: Hyperlipidemia type: unspecified Qualified Code(s): E78.5 - Hyperlipidemia , unspecified
[2018-06-13] MEDS ORDERED: PIPERACILLIN/TAZOBACTAM 3.375 GM VIAL IVPB ONE ×3 (02:39→16:58)
[2018-06-13] MEDS ORDERED: DEXTROSE 5%-WATER - 50 ML IVPB ONE ×3 (02:39→16:58)
[2018-06-13] MEDS: PIPERACILLIN/TAZOB 3.375 GM 3.375 GM in DEXTROSE 5%-WATER - 50 ML IVPB SCH ×3 (02:55→17:16)
[2018-06-13 04:13] LABS: HEP.C VIRUS AB <0.1 s/co ratio (0.0-0.9)
[2018-06-13] MEDS: LEVOTHYROXINE NA 75 MCG TABLET (FP) PO SCH (06:03)
[2018-06-13] MEDS: INSULIN SLIDING SCALE (NOVOLOG) 1 VIAL SQ SCH ×3 (06:04→16:50)
[2018-06-13] MEDS: LACTATED RINGERS SOLUTION 1,000 ML/1,000 ML INFUS.BAG IV SCH (06:04)
[2018-06-13 07:25] LABS: BASO % 0.4 % (0-2.0); EOS % 2.1 % (0-4.5); HEMATOCRIT 35.2 % (32.4-45.2); HEMOGLOBIN 11.9 GM/dL (10.7-15.3); LYMPH % 24.4 % (8-40); MCHC 33.8 g/dl (32.0-36.0); MEAN CELL VOLUME 88.7 fl (80-96); MEAN PLT VOLUME 9.4 fl (7.5-11.1); MONO % 6.9 % (3.8-10.2); NEUT % 66.2 % (42.8-82.8); PLATELET COUNT 157 K/MM3 (134-434); RBC 3.96 M/mm3 (3.60-5.2); WHITE BLOOD COUNT 5.6 K/mm3 (4.0-10.0)
[2018-06-13 08:01] LABS: ALBUMIN 2.9 g/dl (3.4-5.0); ALK PHOS 282 U/L (45-117); ANION GAP 6 MMOL/L (8-16); BLOOD UREA NITROGEN 7 mg/dL (7-18); CALCIUM 9.5 mg/dL (8.5-10.1); CHLORIDE 109 mmol/L (98-107); CO2 25 mmol/L (21-32); CREATININE 0.4 mg/dL (0.55-1.3); GLUCOSE,RANDOM 201 mg/dL (74-106); LIPASE 4008 U/L (73-393); MAGNESIUM 1.9 mg/dL (1.8-2.4); PHOSPHOROUS 1.8 mg/dL (2.5-4.9); POTASSIUM 3.3 mmol/L (3.5-5.1); SGOT/AST 133 U/L (15-37); SGPT/ALT 574 U/L (13-61); SODIUM 140 mmol/L (136-145); TOT PROT 5.8 g/dl (6.4-8.2)
[2018-06-13] MEDS: PANTOPRAZOLE SODIUM 40 MG VIAL IVPUSH SCH (09:41)
[2018-06-13] MEDS: amLODIPine BESYLATE 5 MG TABLET (FP) PO SCH (09:42)
[2018-06-13] MEDS ORDERED: LACTATED RINGERS SOLUTION 1,000 ML IV SCH (10:00)
[2018-06-13] MEDS ORDERED: POTASSIUM CHLORIDE TABS 20 MEQ TABLET.ER (FP) PO ONE ×3 (12:58→19:30)
[2018-06-13] MEDS ORDERED: POTASSIUM PHOSPHATE 30 MM in SODIUM CHLORIDE 500 ML IVPB ONE (13:30)
--- NOTE | 2018-06-13 14:00 | PN ---
GI Progress Note Subjective: S/P ERCP yesterday with extraction of multiple CBD stones and stent placement Lipase 4000 today She denies abdominal pain - Objective Vital Signs: Vital Signs Temperature 98.6 F 06/13/18 12:53 Pulse Rate 70 06/13/18 12:53 Respiratory Rate 18 06/13/18 12:53 Blood Pressure 152/72 06/13/18 12:53 O2 Sat by Pulse Oximetry (%) 96 06/12/18 21:00 Constitutional: Calm Eyes: No: Sclera Icterus Cardiovascular: Yes: Regular Rate and Rhythm Respiratory: Yes: CTA Bilaterally Gastrointestinal Inspection: No: Distention ...Auscultate: Yes: Normoactive Bowel Sounds ...Palpate: Yes: Soft. No: Hepatomegaly, Splenomegaly, Tenderness ...Percussion: No: Tympanitic Edema: No (No LE edema) Neurological: Yes: Alert Labs: CBC, BMP 06/13/18 06:30 06/13/18 06:30 INR, PTT INR 1.04 (0.83-1.09) 06/11/18 06:45 Hepatic Panel Total Bilirubin 1.0 mg/dL (0.2-1) 06/13/18 06:30 Direct Bilirubin 0.6 mg/dL (0.0-0.2) H 06/12/18 07:00 AST 133 U/L (15-37) H 06/13/18 06:30 ALT 574 U/L (13-61) H 06/13/18 06:30 Alkaline Phosphatase 282 U/L (45-117) H 06/13/18 06:30 Albumin 2.9 g/dl (3.4-5.0) L 06/13/18 06:30 Problem List - Problems (1) Choledocholithiasis Assessment/Plan: LFTs improving Suspect chemical pancreatitis s/p ERCP. Clinically the patient looks well and denies abdominal pain Lap Padmini postponed until tomorrow Continue IV hydration NPO except meds Monitor LFTs IV Abx Surgery following Code(s): K80.50 - CALCULUS OF BILE DUCT W/O CHOLANGITIS OR CHOLECYST W/O OBST
[2018-06-13] MEDS ORDERED: PT OWN MED DRAWER 7, Y5N ONE (15:06)
--- NOTE | 2018-06-13 15:06 | PN ---
Physical Exam: SUBJECTIVE: Patient seen and examined at bedside. Endorses she is very nervous in anticipation of procedure. Denies abdominal pain, shortness of breath or chest pain. OBJECTIVE: Vital Signs Period Temp Pulse Resp BP Sys/Farah Pulse Ox Last 24 Hr 97.8 F-99.1 F 66-76 18-20 127-152/56-72 96 GENERAL: NAD AAOx3 HEAD: Normal with no signs of trauma. EYES: No scleral icterus EOMI ENT: MMM LUNGS: CTAB HEART: RRR nl s1s2 ABDOMEN: Nondistended nontender. Allen's sign - EXTREMITIES: No CCE NEUROLOGICAL: Cranial nerves II through XII grossly intact. PSYCH: Normal mood, normal affect. Laboratory Results - last 24 hr 06/11/18 06/12/18 06/12/18 16:15 07:00 17:24 WBC RBC Hgb Hct MCV MCH MCHC RDW Plt Count MPV Absolute Neuts (auto) Neutrophils % Lymphocytes % Monocytes % Eosinophils % Basophils % Nucleated RBC % Sodium Potassium Chloride Carbon Dioxide Anion Gap BUN Creatinine Creat Clearance w eGFR POC Glucometer 239 Random Glucose Calcium Phosphorus Magnesium Iron 82 Total Bilirubin AST ALT Alkaline Phosphatase Total Protein Albumin Lipase Hepatitis A IgM Ab Negative Hep Bs Antigen Negative Hep B Core IgM Ab Negative Hepatitis C Antibody <0.1 06/13/18 06/13/18 06/13/18 05:47 06:30 06:30 WBC 5.6 RBC 3.96 Hgb 11.9 Hct 35.2 MCV 88.7 MCH 30.0 MCHC 33.8 RDW 15.0 Plt Count 157 MPV 9.4 Absolute Neuts (auto) 3.7 Neutrophils % 66.2 Lymphocytes % 24.4 Monocytes % 6.9 Eosinophils % 2.1 Basophils % 0.4 Nucleated RBC % 0 Sodium 140 Potassium 3.3 L Chloride 109 H Carbon Dioxide 25 Anion Gap 6 L BUN 7 Creatinine 0.4 L Creat Clearance w eGFR > 60 POC Glucometer 207 Random Glucose 201 H Calcium 9.5 Phosphorus 1.8 L Magnesium 1.9 Iron Total Bilirubin 1.0 AST 133 H ALT 574 H Alkaline Phosphatase 282 H Total Protein 5.8 L Albumin 2.9 L Lipase 4008 H Hepatitis A IgM Ab Hep Bs Antigen Hep B Core IgM Ab Hepatitis C Antibody 06/13/18 11:33 WBC RBC Hgb Hct MCV MCH MCHC RDW Plt Count MPV Absolute Neuts (auto) Neutrophils % Lymphocytes % Monocytes % Eosinophils % Basophils % Nucleated RBC % Sodium Potassium Chloride Carbon Dioxide Anion Gap BUN Creatinine Creat Clearance w eGFR POC Glucometer 188 Random Glucose Calcium Phosphorus Magnesium Iron Total Bilirubin AST ALT Alkaline Phosphatase Total Protein Albumin Lipase Hepatitis A IgM Ab Hep Bs Antigen Hep B Core IgM Ab Hepatitis C Antibody Active Medications Generic Name Dose Route Start Last Admin Trade Name Freq PRN Reason Stop Dose Admin Amlodipine Besylate 5 mg 06/11/18 21:00 06/13/18 09:42 Norvasc - PO 5 mg DAILY [facility] Administration Atorvastatin Calcium 20 mg 06/11/18 22:00 06/12/18 21:20 Lipitor - PO 20 mg HS [facility] Administration Piperacillin Sod/Tazobactam 50 mls @ 100 mls/hr 06/11/18 15:45 06/13/18 09:40 Sod 3.375 gm/ Dextrose IVPB 100 mls/hr Q8H-IV [facility] Administration Protocol Lactated Ringer's 1,000 mls @ 125 mls/hr 06/13/18 10:00 Lactated Ringers Solution IV ASDIR [facility] Potassium Phosphate 30 mm/ 510 mls @ 62.5 mls/hr 06/13/18 13:30 Sodium Chloride IVPB 06/13/18 21:39 ONCE ONE Insulin Aspart 1 vial 06/11/18 07:00 06/13/18 11:56 Novolog Vial Sliding Scale - SQ Not Given [facility] Protocol Levothyroxine Sodium 75 mcg 06/12/18 07:00 06/13/18 06:03 Synthroid - PO 75 mcg DAILY@0700 [facility] Administration Pantoprazole Sodium 40 mg 06/11/18 10:00 06/13/18 09:41 Protonix Iv IVPUSH 40 mg DAILY [facility] Administration ASSESSMENT/PLAN: Pt. is a 72 Y/O. lady w/ PMHx. of NIDDM, HTN, HLD, and Hypothyroidism presents with 3 days of abdominal pain. #Abdominal Pain 2/2 cholecystitis Abdominal US positive for gallstones, thickened GB wall (4mm) and CBD dilatation (11mm) MRCP---> Cholelithiasis suggestive of cholecystitis. Significantly distended cystic duct containing stones and sludge. Choledocholithiasis without CBD dilation but with intrahepatic billiary ductal dilation. S/P ERCP with Dr Xie. Multiple stones extracted but required a stent as the sphincterotomy became very swollen. Post ERCP Pancreatitis. Lipase 13830. will defer Padmini until tomorrow 10 am per Radhames--> Dr Mascorro AST: 133; ALT: 574, Trending downwards T bili 1.0 ALP 282 -Dr Cowart on board -Dr Mascorro on board -Dr Siddiqui on board - Zosyn 3.375 Q8H #NIDDM Random Glucose 308 3+ Glucose and 1+ ketones in urine HgbA1c 8.3% ISS TIDAC BGM TIDAC Will withold oral hypoglycemics #FEN LR @ 125/hr Monitor Electrolytes NPO #DVT PPx. SCD's Visit type - Emergency Visit Emergency Visit: Yes ED Registration Date: 06/11/18 Care time: The patient presented to the Emergency Department on the above date and was hospitalized for further evaluation of their emergent condition. - New Patient This patient is new to me today: No - Critical Care Critical Care patient: No - Discharge Referral Referred to [facility] Med P.C.: No
--- NOTE | 2018-06-13 15:27 | PN ---
Progress Note, Physician History of Present Illness: stable no new issues - Current Medication List Current Medications: Active Medications Amlodipine Besylate (Norvasc -) 5 mg PO DAILY [facility] Last Admin: 06/13/18 09:42 Dose: 5 mg Atorvastatin Calcium (Lipitor -) 20 mg PO HS [facility] Last Admin: 06/12/18 21:20 Dose: 20 mg Piperacillin Sod/Tazobactam (Sod 3.375 gm/ Dextrose) 50 mls @ 100 mls/hr IVPB Q8H-IV [facility]; Protocol Last Admin: 06/13/18 09:40 Dose: 100 mls/hr Lactated Ringer's (Lactated Ringers Solution) 1,000 mls @ 125 mls/hr IV ASDIR [facility] Potassium Phosphate 30 mm/ (Sodium Chloride) 510 mls @ 62.5 mls/hr IVPB ONCE ONE Stop: 06/13/18 21:39 Last Admin: 06/13/18 15:20 Dose: 62.5 mls/hr Insulin Aspart (Novolog Vial Sliding Scale -) 1 vial SQ TIDAC [facility]; Protocol Last Admin: 06/13/18 11:56 Dose: Not Given Levothyroxine Sodium (Synthroid -) 75 mcg PO DAILY@0700 [facility] Last Admin: 06/13/18 06:03 Dose: 75 mcg Pantoprazole Sodium (Protonix Iv) 40 mg IVPUSH DAILY [facility] Last Admin: 06/13/18 09:41 Dose: 40 mg - Objective Vital Signs: Vital Signs Temperature 98.6 F 06/13/18 12:53 Pulse Rate 70 06/13/18 12:53 Respiratory Rate 18 06/13/18 12:53 Blood Pressure 152/72 06/13/18 12:53 O2 Sat by Pulse Oximetry (%) 96 06/12/18 21:00 Constitutional: Yes: No Distress, Calm Cardiovascular: Yes: S1, S2 Respiratory: Yes: Regular, CTA Bilaterally Gastrointestinal: Yes: Normal Bowel Sounds, Soft Musculoskeletal: Yes: WNL Extremities: Yes: WNL Neurological: Yes: Alert, Oriented Psychiatric: Yes: Alert, Oriented Labs: CBC, BMP 06/13/18 06:30 06/13/18 06:30 INR, PTT INR 1.04 (0.83-1.09) 06/11/18 06:45 Assessment/Plan Problem List - Problems (1) Calculus gallbladder and bile duct w/acute cholecystitis and obstructn Code(s): K80.63 - CALCULUS OF GB AND BILE DUCT W ACUTE CHOLECYST W OBSTRUCTION (2) Epigastric pain Code(s): R10.13 - EPIGASTRIC PAIN (3) Controlled diabetes mellitus with hyperglycemia, without long-term current use of insulin Code(s): E11.65 - TYPE 2 DIABETES MELLITUS WITH HYPERGLYCEMIA Qualifiers: Diabetes mellitus type: type 2 Qualified Code(s): E11.65 - Type 2 diabetes mellitus with hyperglycemia (4) Hypertension Code(s): I10 - ESSENTIAL (PRIMARY) HYPERTENSION Qualifiers: Hypertension type: essential hypertension Qualified Code(s): I10 - Essential (primary) hypertension (5) Hypothyroidism Code(s): E03.9 - HYPOTHYROIDISM, UNSPECIFIED Qualifiers: Hypothyroidism type: unspecified Qualified Code(s): E03.9 - Hypothyroidism , unspecified (6) Hyperlipidemia Code(s): E78.5 - HYPERLIPIDEMIA, UNSPECIFIED Qualifiers: Hyperlipidemia type: unspecified Qualified Code(s): E78.5 - Hyperlipidemia , unspecified (7) Obesity (BMI 30.0-34.9) Code(s): E66.9 - OBESITY, UNSPECIFIED plan continue abx await for final plan
--- NOTE | 2018-06-13 19:38 | PN ---
Progress Note, Physician History of Present Illness: Pt with acute cholecystitis and choledocholithiasis, s/p ERCP with stone extraction, sphincterotomy and stent placement. Seen and examined in bed with granddaughter Sarahi present. No nausea, no fevers, denies pain or tenderness. She is hungry. Surgery postponed today for chemical pancreatitis with rise in lipase to 4000 this am. LFTs trending down. Pt NPO except meds today, feeling well. - Current Medication List Current Medications: Active Medications Amlodipine Besylate (Norvasc -) 5 mg PO DAILY [facility] Last Admin: 06/13/18 09:42 Dose: 5 mg Atorvastatin Calcium (Lipitor -) 20 mg PO HS [facility] Last Admin: 06/12/18 21:20 Dose: 20 mg Piperacillin Sod/Tazobactam (Sod 3.375 gm/ Dextrose) 50 mls @ 100 mls/hr IVPB Q8H-IV [facility]; Protocol Last Admin: 06/13/18 17:16 Dose: 100 mls/hr Lactated Ringer's (Lactated Ringers Solution) 1,000 mls @ 125 mls/hr IV ASDIR [facility] Last Admin: 06/13/18 10:00 Dose: 125 mls/hr Potassium Phosphate 30 mm/ (Sodium Chloride) 510 mls @ 62.5 mls/hr IVPB ONCE ONE Stop: 06/13/18 21:39 Last Admin: 06/13/18 15:20 Dose: 62.5 mls/hr Insulin Aspart (Novolog Vial Sliding Scale -) 1 vial SQ TIDAC [facility]; Protocol Last Admin: 06/13/18 16:50 Dose: Not Given Levothyroxine Sodium (Synthroid -) 75 mcg PO DAILY@0700 [facility] Last Admin: 06/13/18 06:03 Dose: 75 mcg Pantoprazole Sodium (Protonix Iv) 40 mg IVPUSH DAILY [facility] Last Admin: 06/13/18 09:41 Dose: 40 mg - Objective Vital Signs: Vital Signs Temperature 98.6 F 06/13/18 12:53 Pulse Rate 70 06/13/18 12:53 Respiratory Rate 18 06/13/18 12:53 Blood Pressure 152/72 06/13/18 12:53 O2 Sat by Pulse Oximetry (%) 96 06/12/18 21:00 Constitutional: Yes: Well Nourished, No Distress, Calm Eyes: Yes: Conjunctiva Clear, EOM Intact. No: Sclera Icterus HENT: Yes: Atraumatic, Normocephalic Gastrointestinal: Yes: Soft, Abdomen, Obese. No: Tenderness, Tenderness, Epigastrium Extremities: No: Cool, Cyanosis Integumentary: No: Jaundice, Rash Neurological: Yes: Alert, Oriented Labs: CBC, BMP 06/13/18 06:30 06/13/18 06:30 CMP Sodium 140 mmol/L (136-145) 06/13/18 06:30 Potassium 3.3 mmol/L (3.5-5.1) L 06/13/18 06:30 Chloride 109 mmol/L (98-107) H 06/13/18 06:30 Carbon Dioxide 25 mmol/L (21-32) 06/13/18 06:30 Anion Gap 6 MMOL/L (8-16) L 06/13/18 06:30 BUN 7 mg/dL (7-18) 06/13/18 06:30 Creatinine 0.4 mg/dL (0.55-1.3) L 06/13/18 06:30 Creat Clearance w eGFR > 60 (>60) 06/13/18 06:30 POC Glucometer 179 UNITS (80-120) 06/13/18 16:43 Random Glucose 201 mg/dL (74-106) H 06/13/18 06:30 Hemoglobin A1c % 8.3 % (4.2-6.3) H 06/11/18 06:00 Lactic Acid 1.5 mmol/L (0.4-2.0) 06/11/18 00:23 Calcium 9.5 mg/dL (8.5-10.1) 06/13/18 06:30 Phosphorus 1.8 mg/dL (2.5-4.9) L 06/13/18 06:30 Magnesium 1.9 mg/dL (1.8-2.4) 06/13/18 06:30 Iron 82 ug/dL (27-139) 06/12/18 07:00 Total Bilirubin 1.0 mg/dL (0.2-1) 06/13/18 06:30 Direct Bilirubin 0.6 mg/dL (0.0-0.2) H 06/12/18 07:00 AST 133 U/L (15-37) H 06/13/18 06:30 ALT 574 U/L (13-61) H 06/13/18 06:30 Alkaline Phosphatase 282 U/L (45-117) H 06/13/18 06:30 Troponin I < 0.02 ng/ml (0.00-0.05) 06/11/18 00:23 Total Protein 5.8 g/dl (6.4-8.2) L 06/13/18 06:30 Albumin 2.9 g/dl (3.4-5.0) L 06/13/18 06:30 Lipase 4008 U/L (73-393) H 06/13/18 06:30 LFTs down but lipase with sharp rise wbc normal K, Phos low - being repleted Problem List - Problems (1) Calculus gallbladder and bile duct w/acute cholecystitis and obstructn Assessment/Plan: POD1 s/p ERCP with multiple ductal stones extracted, stent left for swollen sphincterotomy NPO except meds until postop pain meds prn, nonnarcotics first line - pain-free now Zosyn per ID trend labs in am, including lipase presuming lipase trending down and pt still without pain, plan lap neymar tomorrow for 10am Consent on chart discussed with GI, primary team (Dr. Holt, Dr. Sam) Code(s): K80.63 - CALCULUS OF GB AND BILE DUCT W ACUTE CHOLECYST W OBSTRUCTION (2) Epigastric pain Assessment/Plan: resolved Code(s): R10.13 - EPIGASTRIC PAIN (3) Controlled diabetes mellitus with hyperglycemia, without long-term current use of insulin Assessment/Plan: A1C is elevated - granddaughter is auto parker, aware Code(s): E11.65 - TYPE 2 DIABETES MELLITUS WITH HYPERGLYCEMIA Qualifiers: Diabetes mellitus type: type 2 Qualified Code(s): E11.65 - Type 2 diabetes mellitus with hyperglycemia (4) Obesity (BMI 30.0-34.9) Code(s): E66.9 - OBESITY, UNSPECIFIED (5) Hypertension Code(s): I10 - ESSENTIAL (PRIMARY) HYPERTENSION Qualifiers: Hypertension type: essential hypertension Qualified Code(s): I10 - Essential (primary) hypertension (6) Hypothyroidism Code(s): E03.9 - HYPOTHYROIDISM, UNSPECIFIED Qualifiers: Hypothyroidism type: unspecified Qualified Code(s): E03.9 - Hypothyroidism , unspecified (7) Hyperlipidemia Code(s): E78.5 - HYPERLIPIDEMIA, UNSPECIFIED Qualifiers: Hyperlipidemia type: unspecified Qualified Code(s): E78.5 - Hyperlipidemia , unspecified
--- NOTE | 2018-06-13 20:36 | PN ---
Teaching Attending Note Name of Resident: Pedro Sam ATTENDING PHYSICIAN STATEMENT I saw and evaluated the patient. I reviewed the resident's note and discussed the case with the resident. I agree with the resident's findings and plan as documented. SUBJECTIVE: Patient is comfortable with no acute distress. No nausea or vomiting. OBJECTIVE: Vital Signs Temperature 98.6 F 06/13/18 12:53 Pulse Rate 70 06/13/18 12:53 Respiratory Rate 18 06/13/18 12:53 Blood Pressure 152/72 06/13/18 12:53 O2 Sat by Pulse Oximetry (%) 96 06/12/18 21:00 GENERAL: Cymraes speaking adult female. NAD HEAD: Normal with no signs of trauma. EYES: No scleral icterus EOMI ENT: MMM, LUNGS: CTAB HEART: RRR, S1S2 positive ABDOMEN: soft, No rebound or guarding or rigidity. EXTREMITIES: No CCE NEUROLOGICAL: Cranial nerves II through XII grossly intact. PSYCH: Normal mood, normal affect. CBCD WBC 5.6 K/mm3 (4.0-10.0) 06/13/18 06:30 RBC 3.96 M/mm3 (3.60-5.2) 06/13/18 06:30 Hgb 11.9 GM/dL (10.7-15.3) 06/13/18 06:30 Hct 35.2 % (32.4-45.2) 06/13/18 06:30 MCV 88.7 fl (80-96) 06/13/18 06:30 MCHC 33.8 g/dl (32.0-36.0) 06/13/18 06:30 RDW 15.0 % (11.6-15.6) 06/13/18 06:30 Plt Count 157 K/MM3 (134-434) 06/13/18 06:30 MPV 9.4 fl (7.5-11.1) 06/13/18 06:30 CMP Sodium 140 mmol/L (136-145) 06/13/18 06:30 Potassium 3.3 mmol/L (3.5-5.1) L 06/13/18 06:30 Chloride 109 mmol/L (98-107) H 06/13/18 06:30 Carbon Dioxide 25 mmol/L (21-32) 06/13/18 06:30 Anion Gap 6 MMOL/L (8-16) L 06/13/18 06:30 BUN 7 mg/dL (7-18) 06/13/18 06:30 Creatinine 0.4 mg/dL (0.55-1.3) L 06/13/18 06:30 Creat Clearance w eGFR > 60 (>60) 06/13/18 06:30 Random Glucose 201 mg/dL (74-106) H 06/13/18 06:30 Calcium 9.5 mg/dL (8.5-10.1) 06/13/18 06:30 Total Bilirubin 1.0 mg/dL (0.2-1) 06/13/18 06:30 AST 133 U/L (15-37) H 06/13/18 06:30 ALT 574 U/L (13-61) H 06/13/18 06:30 Alkaline Phosphatase 282 U/L (45-117) H 06/13/18 06:30 Total Protein 5.8 g/dl (6.4-8.2) L 06/13/18 06:30 Albumin 2.9 g/dl (3.4-5.0) L 06/13/18 06:30 CARDIAC ENZYMES Troponin I < 0.02 ng/ml (0.00-0.05) 06/11/18 00:23 Current Medications Generic Name Dose Route Start Last Admin Trade Name Freq PRN Reason Stop Dose Admin Amlodipine Besylate 5 mg 06/11/18 21:00 06/13/18 09:42 Norvasc - PO 5 mg DAILY [facility] Administration Atorvastatin Calcium 20 mg 06/11/18 22:00 06/12/18 21:20 Lipitor - PO 20 mg HS [facility] Administration Piperacillin Sod/Tazobactam 50 mls @ 100 mls/hr 06/11/18 15:45 06/13/18 17:16 Sod 3.375 gm/ Dextrose IVPB 100 mls/hr Q8H-IV [facility] Administration Protocol Lactated Ringer's 1,000 mls @ 125 mls/hr 06/13/18 10:00 06/13/18 10:00 Lactated Ringers Solution IV 125 mls/hr ASDIR [facility] Administration Potassium Phosphate 30 mm/ 510 mls @ 62.5 mls/hr 06/13/18 13:30 06/13/18 15: 20 Sodium Chloride IVPB 06/13/18 21:39 62.5 mls/hr ONCE ONE Administration Insulin Aspart 1 vial 06/11/18 07:00 06/13/18 16:50 Novolog Vial Sliding Scale - SQ Not Given TIDAC [facility] Protocol Levothyroxine Sodium 75 mcg 06/12/18 07:00 06/13/18 06:03 Synthroid - PO 75 mcg DAILY@0700 [facility] Administration Pantoprazole Sodium 40 mg 06/11/18 10:00 06/13/18 09:41 Protonix Iv IVPUSH 40 mg DAILY [facility] Administration Home Medications Medication Instructions Recorded Amlodipine Besylate/Benazepril 5 - 20 each PO DAILY 07/06/12 [Lotrel 5-20 mg Capsule] Aspirin [ASA -] 81 mg PO HS 07/06/12 Atorvastatin Ca [Lipitor] 20 mg PO HS 07/06/12 Glipizide [Glipizide Xl] 5 mg PO DAILY 07/06/12 metFORMIN HCL [Glucophage -] 500 mg PO BID 07/06/12 Glimepiride [Amaryl -] 2 mg PO DAILY 06/12/18 Levothyroxine [Synthroid -] 75 mcg PO DAILY 06/12/18 ASSESSMENT AND PLAN: Patient is a 72 y/o lady with h/o HTN, HLP, DM ,hypothyroidism who presented with N/V and abd pain, and was found to have transaminitis and dilatation of CBD . # Acute Pancreatitis s/p ERCP, once stable will go to OR for lap Chol. # Acute Transaminitis : s/p ERCP , on IV zosyn continue. will trend. # DM : SSI q 6 hr, while NPO . # HTN: on Norvasc continue DVT Px: SCd
[2018-06-13] MEDS: ATORVASTATIN CA 20 MG TABLET (FP) PO SCH (21:24)
[2018-06-14] MEDS ORDERED: PIPERACILLIN/TAZOBACTAM 3.375 GM VIAL IVPB ONE ×4 (01:36→17:28)
[2018-06-14] MEDS ORDERED: DEXTROSE 5%-WATER - 50 ML IVPB ONE ×3 (01:37→17:28)
[2018-06-14] MEDS: PIPERACILLIN/TAZOB 3.375 GM 3.375 GM in DEXTROSE 5%-WATER - 50 ML IVPB SCH ×2 (01:41→17:33)
[2018-06-14] MEDS: LEVOTHYROXINE NA 75 MCG TABLET (FP) PO SCH (06:29)
[2018-06-14] MEDS: INSULIN SLIDING SCALE (NOVOLOG) 1 VIAL SQ SCH ×2 (06:29→17:35)
[2018-06-14 07:53] LABS: HEMATOCRIT 38.6 % (32.4-45.2); HEMOGLOBIN 13.2 GM/dL (10.7-15.3); MCH 30.7 pg (25.7-33.7); MCHC 34.1 g/dl (32.0-36.0); MEAN PLT VOLUME 9.5 fl (7.5-11.1); PLATELET COUNT 161 K/MM3 (134-434); RBC 4.28 M/mm3 (3.60-5.2); RDW 14.9 % (11.6-15.6); WHITE BLOOD COUNT 6.3 K/mm3 (4.0-10.0)
[2018-06-14 08:28] LABS: ALK PHOS 265 U/L (45-117); ANION GAP 7 MMOL/L (8-16); BILIRUBIN,TOTAL 0.9 mg/dL (0.2-1); BLOOD UREA NITROGEN 7 mg/dL (7-18); CALCIUM 9.7 mg/dL (8.5-10.1); CHLORIDE 110 mmol/L (98-107); CO2 22 mmol/L (21-32); CREATININE 0.5 mg/dL (0.55-1.3); GLUCOSE,RANDOM 170 mg/dL (74-106); LIPASE 629 U/L (73-393); MAGNESIUM 1.9 mg/dL (1.8-2.4); PHOSPHOROUS 2.5 mg/dL (2.5-4.9); POTASSIUM 4.1 mmol/L (3.5-5.1); SGOT/AST 92 U/L (15-37); SGPT/ALT 453 U/L (13-61); SODIUM 140 mmol/L (136-145); TOT PROT 6.2 g/dl (6.4-8.2)
[2018-06-14] MEDS ORDERED: ROCURONIUM BROMIDE 50 MG/5 ML VIAL ONE ×2 (09:11→10:40)
[2018-06-14] MEDS ORDERED: LIDOCAINE HCL/PF 2% SDV 5ML VIAL ONE (09:11)
[2018-06-14] MEDS ORDERED: MIDAZOLAM HCL 2 MG/2 ML SINGLE DOSE VIAL ONE (09:11)
[2018-06-14] MEDS ORDERED: fentaNYL CITRATE 250 MCG/5 ML VIAL ONE (09:11)
[2018-06-14] MEDS ORDERED: PROPOFOL 20 ML ONE (09:11)
[2018-06-14] MEDS ORDERED: LIDOCAINE HCL 1%, 10 MG/ML (20ML VIAL) ONE (09:30)
[2018-06-14] MEDS ORDERED: BUPIVACAINE HCL/PF 0.5% (5MG/ML) 10 ML VIAL ONE (09:31)
[2018-06-14] MEDS ORDERED: BENZOIN TINCTURE SWABSTICK TP ONE (09:31)
[2018-06-14] MEDS ORDERED: ONDANSETRON 4 MG/2 ML VIAL IVPUSH PRN (09:46)
[2018-06-14] MEDS ORDERED: LACTATED RINGERS SOLUTION 1,000 ML IV SCH ×3 (10:00→15:34)
[2018-06-14] MEDS ORDERED: DEXAMETHASONE SOD PHOSPHATE 4 MG/1 ML VIAL ONE (10:31)
[2018-06-14] MEDS ORDERED: ePHEDrine SULFATE 50 MG/1 ML AMPULE ONE (10:35)
[2018-06-14] MEDS ORDERED: SODIUM CHLORIDE 0.9% P/F 10 ML VIAL IJ ONE (10:36)
[2018-06-14] MEDS: amLODIPine BESYLATE 5 MG TABLET (FP) PO SCH (10:36)
[2018-06-14] MEDS: PANTOPRAZOLE SODIUM 40 MG VIAL IVPUSH SCH (10:36)
[2018-06-14] MEDS ORDERED: BUPIVACAINE HCL/PF (5 MG/ML) 30 ML VIAL IJ ONE (11:51)
[2018-06-14] MEDS ORDERED: GLYCOPYRROLATE 0.2 MG/1 ML VIAL ONE (11:52)
[2018-06-14] MEDS ORDERED: NEOSTIGMINE METHYLSULFATE 0.5 MG/ML - 10 ML MDV ONE (11:52)
--- NOTE | 2018-06-14 12:21 | OP ---
Operative Note - Note: Operative Date: 06/14/18 Pre-Operative Diagnosis: acute cholecystitis, choledocholithiasis, s/p ERCP w/ stent Operation: laparoscopic cholecystectomy Findings: contracted gallbladder with multiple stones, some dense overlying omental adhesions, enlarged cystic duct with cystic/gallbladder junction clearly identified and Weck clips used; small artery (branch?) clipped first, gallbladder ischemic after duct clipped (possibly with cystic artery en bloc), large stone with other smaller palpable after extraction Post-Operative Diagnosis: Same as Pre-op Surgeon: Chilango Mascorro Black Studies Professor: Wesley Delatorre Anesthesiologist/BRICK WASHER: Ashleigh Talamantes Anesthesia: General, Local (20ml 0.5% marcaine) Specimens Removed: gallbladder to pathology Estimated Blood Loss (mls): 10 Fluid Volume Replaced (mls): 1,300 (crystalloid) Operative Report Dictated: Yes
[2018-06-14] MEDS ORDERED: ACETAMINOPHEN 1000 MG/100 ML VIAL (NON FORMULARY) IVPB ONE ×3 (12:23→15:34)
[2018-06-14] MEDS ORDERED: ACETAMINOPHEN INJECTION 100 ML IVPB ONE (12:38)
[2018-06-14] MEDS ORDERED: HYDROmorphone HCl 2 MG/ML VIAL ONE (14:08)
[2018-06-14] MEDS ORDERED: HYDROmorphone HCl 2 MG/ML VIAL IVPB PRN (14:11)
[2018-06-14] MEDS ORDERED: HYDROmorphone HCl 2 MG/ML VIAL IVPUSH ONE (14:12)
--- NOTE | 2018-06-14 14:17 | PN ---
Progress Note, Physician History of Present Illness: post op patient doing well - Current Medication List Current Medications: Active Medications Acetaminophen (Tylenol -) 650 mg PO Q6H [facility] Amlodipine Besylate (Norvasc -) 5 mg PO DAILY [facility] Last Admin: 06/14/18 10:36 Dose: Not Given Atorvastatin Calcium (Lipitor -) 20 mg PO HS [facility] Fentanyl (Sublimaze Injection -) 50 mcg IVPUSH [id number] PRN PRN Reason: PAIN-PACU ORDER X 4 DOSES ONLY Piperacillin Sod/Tazobactam (Sod 3.375 gm/ Dextrose) 50 mls @ 100 mls/hr IVPB Q8H-IV [facility]; Protocol Last Admin: 06/14/18 01:41 Dose: 100 mls/hr Lactated Ringer's (Lactated Ringers Solution) 1,000 mls @ 100 mls/hr IV ASDIR [facility] Ibuprofen (Motrin -) 600 mg PO Q6H [facility] Insulin Aspart (Novolog Vial Sliding Scale -) 1 vial SQ TIDAC [facility]; Protocol Last Admin: 06/14/18 06:29 Dose: Not Given Levothyroxine Sodium (Synthroid -) 75 mcg PO DAILY@0700 [facility] Ondansetron HCl (Zofran Injection) 4 mg IVPUSH Q6H PRN PRN Reason: NAUSEA AND/OR VOMITING Pantoprazole Sodium (Protonix Iv) 40 mg IVPUSH DAILY [facility] Last Admin: 06/14/18 10:36 Dose: Not Given - Objective Vital Signs: Vital Signs Temperature 98.5 F 06/14/18 12:13 Pulse Rate 69 06/14/18 13:45 Respiratory Rate 27 H 06/14/18 13:45 Blood Pressure 168/73 06/14/18 13:45 O2 Sat by Pulse Oximetry (%) 9 L 06/14/18 13:45 Constitutional: Yes: No Distress, Calm Cardiovascular: Yes: Regular Rate and Rhythm Respiratory: Yes: Regular, CTA Bilaterally Gastrointestinal: Yes: Normal Bowel Sounds, Soft Musculoskeletal: Yes: WNL Extremities: Yes: WNL Wound/Incision: Yes: Clean/Dry Neurological: Yes: Alert, Oriented Labs: CBC, BMP 06/14/18 06:30 06/14/18 06:30 INR, PTT INR 1.04 (0.83-1.09) 06/11/18 06:45 Assessment/Plan Problem List - Problems (1) Calculus gallbladder and bile duct w/acute cholecystitis and obstructn Code(s): K80.63 - CALCULUS OF GB AND BILE DUCT W ACUTE CHOLECYST W OBSTRUCTION (2) Epigastric pain Code(s): R10.13 - EPIGASTRIC PAIN (3) Controlled diabetes mellitus with hyperglycemia, without long-term current use of insulin Code(s): E11.65 - TYPE 2 DIABETES MELLITUS WITH HYPERGLYCEMIA Qualifiers: Diabetes mellitus type: type 2 Qualified Code(s): E11.65 - Type 2 diabetes mellitus with hyperglycemia (4) Hypertension Code(s): I10 - ESSENTIAL (PRIMARY) HYPERTENSION Qualifiers: Hypertension type: essential hypertension Qualified Code(s): I10 - Essential (primary) hypertension (5) Hypothyroidism Code(s): E03.9 - HYPOTHYROIDISM, UNSPECIFIED Qualifiers: Hypothyroidism type: unspecified Qualified Code(s): E03.9 - Hypothyroidism , unspecified (6) Hyperlipidemia Code(s): E78.5 - HYPERLIPIDEMIA, UNSPECIFIED Qualifiers: Hyperlipidemia type: unspecified Qualified Code(s): E78.5 - Hyperlipidemia , unspecified (7) Obesity (BMI 30.0-34.9) Code(s): E66.9 - OBESITY, UNSPECIFIED plan continue abx once patient starts diet can switch to oral rest as per the team patient stable
--- NOTE | 2018-06-14 14:34 | PN ---
Physical Exam: SUBJECTIVE: Patient seen and examined at bedside in am. For Lap Padmini today. OBJECTIVE: Vital Signs Period Temp Pulse Resp BP Sys/Faarh Pulse Ox Last 24 Hr 98 F-98.8 F 64-86 18-27 139-173/58-79 95-98 GENERAL: No acute distress HEAD: Normal with no signs of trauma. EYES: No scleral icterus EOMI ENT: MMM LUNGS: Clear to auscultation b/l HEART: RRR nl s1s2 ABDOMEN: Nondistended nontender. EXTREMITIES: No CCE NEUROLOGICAL: Cranial nerves II through XII grossly intact. PSYCH: Normal mood, normal affect. Laboratory Results - last 24 hr 06/12/18 06/12/18 06/13/18 07:00 07:00 16:43 WBC RBC Hgb Hct MCV MCH MCHC RDW Plt Count MPV Sodium Potassium Chloride Carbon Dioxide Anion Gap BUN Creatinine Creat Clearance w eGFR POC Glucometer 179 Random Glucose Calcium Phosphorus Magnesium Total Bilirubin AST ALT Alkaline Phosphatase Total Protein Albumin Lipase CYNTHIA Screen Negative Smooth Musc &GALLEY HAND Intrp 15 06/14/18 06/14/18 06/14/18 06:28 06:30 06:30 WBC 6.3 RBC 4.28 Hgb 13.2 Hct 38.6 MCV 90.0 MCH 30.7 MCHC 34.1 RDW 14.9 Plt Count 161 MPV 9.5 Sodium 140 Potassium 4.1 Chloride 110 H Carbon Dioxide 22 Anion Gap 7 L BUN 7 Creatinine 0.5 L Creat Clearance w eGFR 120.94 POC Glucometer 162 Random Glucose 170 H Calcium 9.7 Phosphorus 2.5 Magnesium 1.9 Total Bilirubin 0.9 AST 92 H ALT 453 H Alkaline Phosphatase 265 H Total Protein 6.2 L Albumin 3.0 L Lipase 629 H CYNTHIA Screen Smooth Musc &GALLEY HAND Intrp Active Medications Generic Name Dose Route Start Last Admin Trade Name Freq PRN Reason Stop Dose Admin Acetaminophen 650 mg 06/14/18 18:00 Tylenol - PO Q6H [facility] Amlodipine Besylate 5 mg 06/11/18 21:00 06/14/18 10:36 Norvasc - PO Not Given DAILY [facility] Atorvastatin Calcium 20 mg 06/14/18 22:00 Lipitor - PO HS [facility] Fentanyl 50 mcg 06/14/18 09:46 Sublimaze Injection - IVPUSH [id number] PRN PAIN-PACU ORDER X 4 DOSES ONLY Hydromorphone HCl 0.5 mg 06/14/18 14:11 Dilaudid Vial - IVPB [id number] PRN PAIN LEVEL 6-10 Piperacillin Sod/Tazobactam 50 mls @ 100 mls/hr 06/11/18 15:45 06/14/18 01:41 Sod 3.375 gm/ Dextrose IVPB 100 mls/hr Q8H-IV [facility] Administration Protocol Lactated Ringer's 1,000 mls @ 100 mls/hr 06/14/18 12:24 Lactated Ringers Solution IV ASDIR [facility] Ibuprofen 600 mg 06/14/18 15:00 Motrin - PO Q6H [facility] Insulin Aspart 1 vial 06/11/18 07:00 06/14/18 06:29 Novolog Vial Sliding Scale - SQ Not Given TIDAC [facility] Protocol Levothyroxine Sodium 75 mcg 06/15/18 07:00 Synthroid - PO DAILY@0700 [facility] Ondansetron HCl 4 mg 06/14/18 09:46 Zofran Injection IVPUSH Q6H PRN NAUSEA AND/OR VOMITING Pantoprazole Sodium 40 mg 06/11/18 10:00 06/14/18 10:36 Protonix Iv IVPUSH Not Given DAILY [facility] ASSESSMENT/PLAN: Pt. is a 72 Y/O. lady w/ PMHx. of NIDDM, HTN, HLD, and Hypothyroidism presents with 3 days of abdominal pain. #Abdominal Pain 2/2 cholecystitis Abdominal US positive for gallstones, thickened GB wall (4mm) and CBD dilatation (11mm) MRCP---> Cholelithiasis suggestive of cholecystitis. Significantly distended cystic duct containing stones and sludge. Choledocholithiasis without CBD dilation but with intrahepatic billiary ductal dilation. S/P ERCP with Dr Xie. Multiple stones extracted but required a stent as the sphincterotomy became very swollen. Post ERCP Pancreatitis. Lipase 30789. Lap Padmini today with Dr Mascorro AST: 92; ALT: 453, Trending downwards -Dr Cowart on board -Dr Mascorro on board -Dr Siddiqui on board - Zosyn 3.375 Q8H #NIDDM Random Glucose 308 3+ Glucose and 1+ ketones in urine HgbA1c 8.3% ISS TIDAC BGM TIDAC Will withold oral hypoglycemics #FEN LR @ 125/hr Monitor Electrolytes NPO #DVT PPx. SCD's Visit type - Emergency Visit Emergency Visit: Yes ED Registration Date: 06/11/18 Care time: The patient presented to the Emergency Department on the above date and was hospitalized for further evaluation of their emergent condition. - New Patient This patient is new to me today: No - Critical Care Critical Care patient: No - Discharge Referral Referred to [facility] Med P.C.: No
[2018-06-14] MEDS ORDERED: IBUPROFEN 600 MG TABLET (FP) PO SCH (15:00)
[2018-06-14] MEDS: ACETAMINOPHEN 325 MG TABLET (FP) PO SCH (17:33)
[2018-06-14] MEDS ORDERED: ACETAMINOPHEN 325 MG TABLET (FP) PO SCH (18:00)
--- NOTE | 2018-06-14 19:11 | PN ---
Teaching Attending Note Name of Resident: Pedro Sam ATTENDING PHYSICIAN STATEMENT I saw and evaluated the patient. I reviewed the resident's note and discussed the case with the resident. I agree with the resident's findings and plan as documented. SUBJECTIVE: Patient to OR, for lap chol. OBJECTIVE: Vital Signs Temperature 98.5 F 06/14/18 14:40 Pulse Rate 78 06/14/18 14:40 Respiratory Rate 18 06/14/18 14:40 Blood Pressure 148/68 06/14/18 14:40 O2 Sat by Pulse Oximetry (%) 95 06/14/18 14:30 Initial Vital Signs Temp Pulse Resp BP Pulse Ox 98.0 F 83 16 123/54 L 100 06/10/18 22:13 06/10/18 22:13 06/10/18 22:13 06/10/18 22:13 06/10/18 22:13 GENERAL: [place]an speaking adult female. Well nourished NAD HEAD: Normal with no signs of trauma. EYES: No scleral icterus EOMI ENT: MMM, LUNGS: CTAB HEART: RRR, S1S2 positive ABDOMEN: soft, No rebound or guarding or rigidity. EXTREMITIES: No CCE NEUROLOGICAL: Cranial nerves II through XII grossly intact. PSYCH: Normal mood, normal affect. CBCD WBC 6.3 K/mm3 (4.0-10.0) 06/14/18 06:30 RBC 4.28 M/mm3 (3.60-5.2) 06/14/18 06:30 Hgb 13.2 GM/dL (10.7-15.3) 06/14/18 06:30 Hct 38.6 % (32.4-45.2) 06/14/18 06:30 MCV 90.0 fl (80-96) 06/14/18 06:30 MCHC 34.1 g/dl (32.0-36.0) 06/14/18 06:30 RDW 14.9 % (11.6-15.6) 06/14/18 06:30 Plt Count 161 K/MM3 (134-434) 06/14/18 06:30 MPV 9.5 fl (7.5-11.1) 06/14/18 06:30 CMP Sodium 140 mmol/L (136-145) 06/14/18 06:30 Potassium 4.1 mmol/L (3.5-5.1) 06/14/18 06:30 Chloride 110 mmol/L (98-107) H 06/14/18 06:30 Carbon Dioxide 22 mmol/L (21-32) 06/14/18 06:30 Anion Gap 7 MMOL/L (8-16) L 06/14/18 06:30 BUN 7 mg/dL (7-18) 06/14/18 06:30 Creatinine 0.5 mg/dL (0.55-1.3) L 06/14/18 06:30 Creat Clearance w eGFR 120.94 (>60) 06/14/18 06:30 Random Glucose 170 mg/dL (74-106) H 06/14/18 06:30 Calcium 9.7 mg/dL (8.5-10.1) 06/14/18 06:30 Total Bilirubin 0.9 mg/dL (0.2-1) 06/14/18 06:30 AST 92 U/L (15-37) H 06/14/18 06:30 ALT 453 U/L (13-61) H 06/14/18 06:30 Alkaline Phosphatase 265 U/L (45-117) H 06/14/18 06:30 Total Protein 6.2 g/dl (6.4-8.2) L 06/14/18 06:30 Albumin 3.0 g/dl (3.4-5.0) L 06/14/18 06:30 CARDIAC ENZYMES Troponin I < 0.02 ng/ml (0.00-0.05) 06/11/18 00:23 Current Medications Generic Name Dose Route Start Last Admin Trade Name Jeffreyq PRN Reason Stop Dose Admin Acetaminophen 650 mg 06/14/18 18:00 06/14/18 17:33 Tylenol - PO 650 mg Q6H [facility] Administration Amlodipine Besylate 5 mg 06/15/18 10:00 Norvasc - PO DAILY [facility] Atorvastatin Calcium 20 mg 06/14/18 22:00 Lipitor - PO HS [facility] Hydromorphone HCl 0.5 mg 06/14/18 14:11 Dilaudid Vial - IVPB [id number] PRN PAIN LEVEL 6-10 Lactated Ringer's 1,000 mls @ 100 mls/hr 06/14/18 15:34 Lactated Ringers Solution IV ASDIR [facility] Piperacillin Sod/Tazobactam 50 mls @ 100 mls/hr 06/14/18 18:00 06/14/18 17:33 Sod 3.375 gm/ Dextrose IVPB 100 mls/hr Q8H-IV [facility] Administration Protocol Ibuprofen 600 mg 06/14/18 21:00 Motrin - PO Q6H [facility] Insulin Aspart 1 vial 06/14/18 16:30 06/14/18 17:35 Novolog Vial Sliding Scale - SQ 2 units TIDAC [facility] Administration Protocol Levothyroxine Sodium 75 mcg 06/15/18 07:00 Synthroid - PO DAILY@0700 [facility] Pantoprazole Sodium 40 mg 06/15/18 10:00 Protonix Iv IVPUSH DAILY [facility] Home Medications Medication Instructions Recorded Amlodipine Besylate/Benazepril 5 - 20 each PO DAILY 07/06/12 [Lotrel 5-20 mg Capsule] Aspirin [ASA -] 81 mg PO HS 07/06/12 Atorvastatin Ca [Lipitor] 20 mg PO HS 07/06/12 Glipizide [Glipizide Xl] 5 mg PO DAILY 07/06/12 metFORMIN HCL [Glucophage -] 500 mg PO BID 07/06/12 Glimepiride [Amaryl -] 2 mg PO DAILY 06/12/18 Levothyroxine [Synthroid -] 75 mcg PO DAILY 06/12/18 ASSESSMENT AND PLAN: Patient is a 72 y/o lady with h/o HTN, HLP, DM ,hypothyroidism who presented with N/V and abd pain, and was found to have transaminitis and dilatation of CBD . # POD #0 s/p lap. chol. for acute cholecystitis, choledocholithiasis, s/p ERCP w/stent # s/p Acute Pancreatitis post ERCP improved. # Acute Transaminitis : s/p ERCP , on IV zosyn continue. # DM : SSI q 6 hr, while NPO . # HTN: on Norvasc continue DVT Px: SCd
[2018-06-14] MEDS: IBUPROFEN 600 MG TABLET (FP) PO SCH (21:27)
[2018-06-14] MEDS ORDERED: ATORVASTATIN CA 20 MG TABLET (FP) PO SCH ×2 (22:00)
[2018-06-15] MEDS: ACETAMINOPHEN 325 MG TABLET (FP) PO SCH ×3 (01:00→13:02)
[2018-06-15] MEDS ORDERED: DEXTROSE 5%-WATER - 50 ML IVPB ONE ×2 (01:36→10:39)
[2018-06-15] MEDS ORDERED: PIPERACILLIN/TAZOBACTAM 3.375 GM VIAL IVPB ONE ×2 (01:36→10:39)
[2018-06-15] MEDS: PIPERACILLIN/TAZOB 3.375 GM 3.375 GM in DEXTROSE 5%-WATER - 50 ML IVPB SCH ×2 (01:39→10:47)
[2018-06-15] MEDS: IBUPROFEN 600 MG TABLET (FP) PO SCH ×2 (02:16→10:47)
[2018-06-15] MEDS: INSULIN SLIDING SCALE (NOVOLOG) 1 VIAL SQ SCH ×2 (06:31→11:57)
[2018-06-15] MEDS ORDERED: LEVOTHYROXINE NA 75 MCG TABLET (FP) PO SCH ×2 (07:00)
--- NOTE | 2018-06-15 09:25 | PN ---
Progress Note (short form) - Note Progress Note: POD 1 s/p lap neymar under GA. Doing well - ambulatory, minimal pain, no N/V. No other anesthetic issues/comlpications
[2018-06-15] MEDS ORDERED: amLODIPine BESYLATE 5 MG TABLET (FP) PO SCH (10:00)
[2018-06-15] MEDS ORDERED: PANTOPRAZOLE SODIUM 40 MG VIAL IVPUSH SCH (10:00)
--- NOTE | 2018-06-15 11:18 | PN ---
GI Progress Note Subjective: Awake, states feeling well, some pain at the umbilical trochar site No BM as of yet (describes chronic constipation) - Objective Vital Signs: Vital Signs Temperature 98.9 F 06/15/18 05:00 Pulse Rate 74 06/15/18 05:00 Respiratory Rate 20 06/15/18 05:00 Blood Pressure 132/60 06/15/18 05:00 O2 Sat by Pulse Oximetry (%) 94 L 06/14/18 21:00 Constitutional: Calm Eyes: No: Sclera Icterus Cardiovascular: Yes: Regular Rate and Rhythm Respiratory: Yes: CTA Bilaterally Gastrointestinal Inspection: Yes: Scars (dressed trochar sites). No: Distention ...Auscultate: Yes: Normoactive Bowel Sounds ...Palpate: Yes: Tenderness (mild tenderness at umbilical trochar site) ...Percussion: No: Tympanitic Edema: No (No LE edema) Labs: CBC, BMP 06/14/18 06:30 06/14/18 06:30 INR, PTT INR 1.04 (0.83-1.09) 06/11/18 06:45 Hepatic Panel Total Bilirubin 0.9 mg/dL (0.2-1) 06/14/18 06:30 Direct Bilirubin 0.6 mg/dL (0.0-0.2) H 06/12/18 07:00 AST 92 U/L (15-37) H 06/14/18 06:30 ALT 453 U/L (13-61) H 06/14/18 06:30 Alkaline Phosphatase 265 U/L (45-117) H 06/14/18 06:30 Albumin 3.0 g/dl (3.4-5.0) L 06/14/18 06:30 Problem List - Problems (1) Choledocholithiasis Assessment/Plan: S/P ERCP with multiple stones extracted, stent placement and subsequent cholecystectomy Clinically doing well Ordered hepatic panel for today Post op care per surgery Abx management per primary team Will need repeat ERCP in 3 months for reevaluation of bilae duct and stent removal Code(s): K80.50 - CALCULUS OF BILE DUCT W/O CHOLANGITIS OR CHOLECYST W/O OBST
[2018-06-15] MEDS ORDERED: INSULIN (NOVOLOG) ASPART 100 UNITS/ML 10ML VIAL ONE (11:47)
[2018-06-15 13:44] LABS: BILIRUBIN,DIRECT 0.4 mg/dL (0.0-0.2); BILIRUBIN,TOTAL 0.6 mg/dL (0.2-1); TOT PROT 6.2 g/dl (6.4-8.2)
--- NOTE | 2018-06-15 15:26 | DS ---
Physical Exam: SUBJECTIVE: Patient seen and examined Patient is feeling better, tolerating diet. OBJECTIVE: Initial Vital Signs Temp Pulse Resp BP Pulse Ox 98.0 F 83 16 123/54 L 100 06/10/18 22:13 06/10/18 22:13 06/10/18 22:13 06/10/18 22:13 06/10/18 22:13 Vital Signs Temperature 97.6 F 06/15/18 15:37 Pulse Rate 71 06/15/18 15:37 Respiratory Rate 18 06/15/18 09:00 Blood Pressure 138/80 06/15/18 15:37 O2 Sat by Pulse Oximetry (%) 94 L 06/14/18 21:00 PHYSICAL EXAM GENERAL: The patient is awake, alert, and fully oriented, in no acute distress. HEAD: Normal with no signs of trauma. EYES: PERRL, extraocular movements intact, sclera anicteric, conjunctiva clear. ENT: Ears normal, oropharynx clear without exudates, moist mucous membranes. NECK: Trachea midline, full range of motion, supple. LUNGS: Breath sounds equal, clear to auscultation bilaterally, no wheezes, no crackles, no accessory muscle use. HEART: Regular rate and rhythm, S1, S2 without murmur, rub or gallop. ABDOMEN: Soft, nontender, nondistended, normoactive bowel sounds, no guarding, no rebound, no hepatosplenomegaly, no masses. EXTREMITIES: 2+ pulses, warm, well-perfused, no edema. NEUROLOGICAL: Cranial nerves II through XII grossly intact. Normal speech, gait is normal PSYCH: Normal mood, normal affect. SKIN: Warm, dry, normal turgor, no rashes or lesions noted. LABS CBCD WBC 6.3 K/mm3 (4.0-10.0) 06/14/18 06:30 RBC 4.28 M/mm3 (3.60-5.2) 06/14/18 06:30 Hgb 13.2 GM/dL (10.7-15.3) 06/14/18 06:30 Hct 38.6 % (32.4-45.2) 06/14/18 06:30 MCV 90.0 fl (80-96) 06/14/18 06:30 MCHC 34.1 g/dl (32.0-36.0) 06/14/18 06:30 RDW 14.9 % (11.6-15.6) 06/14/18 06:30 Plt Count 161 K/MM3 (134-434) 06/14/18 06:30 MPV 9.5 fl (7.5-11.1) 06/14/18 06:30 CMP Sodium 140 mmol/L (136-145) 06/14/18 06:30 Potassium 4.1 mmol/L (3.5-5.1) 06/14/18 06:30 Chloride 110 mmol/L (98-107) H 06/14/18 06:30 Carbon Dioxide 22 mmol/L (21-32) 06/14/18 06:30 Anion Gap 7 MMOL/L (8-16) L 06/14/18 06:30 BUN 7 mg/dL (7-18) 06/14/18 06:30 Creatinine 0.5 mg/dL (0.55-1.3) L 06/14/18 06:30 Creat Clearance w eGFR 120.94 (>60) 06/14/18 06:30 Random Glucose 170 mg/dL (74-106) H 06/14/18 06:30 Calcium 9.7 mg/dL (8.5-10.1) 06/14/18 06:30 Total Bilirubin 0.6 mg/dL (0.2-1) 06/15/18 12:35 AST 53 U/L (15-37) H 06/15/18 12:35 ALT 326 U/L (13-61) H 06/15/18 12:35 Alkaline Phosphatase 225 U/L (45-117) H 06/15/18 12:35 Total Protein 6.2 g/dl (6.4-8.2) L 06/15/18 12:35 Albumin 3.0 g/dl (3.4-5.0) L 06/15/18 12:35 CARDIAC ENZYMES Troponin I < 0.02 ng/ml (0.00-0.05) 06/11/18 00:23 Laboratory Results - last 24 hr 06/14/18 06/15/18 06/15/18 17:24 06:27 11:34 POC Glucometer 218 254 319 Total Bilirubin Direct Bilirubin AST ALT Alkaline Phosphatase Total Protein Albumin 06/15/18 12:35 POC Glucometer Total Bilirubin 0.6 Direct Bilirubin 0.4 H AST 53 H ALT 326 H Alkaline Phosphatase 225 H Total Protein 6.2 L Albumin 3.0 L Current Medications Generic Name Dose Route Start Last Admin Trade Name Giselle PRN Reason Stop Dose Admin Acetaminophen 650 mg 06/14/18 18:00 06/15/18 13:02 Tylenol - PO 650 mg Q6H [facility] Administration Amlodipine Besylate 5 mg 06/15/18 10:00 06/15/18 10:48 Norvasc - PO 5 mg DAILY [facility] Administration Atorvastatin Calcium 20 mg 06/14/18 22:00 06/14/18 21:27 Lipitor - PO 20 mg HS [facility] Administration Piperacillin Sod/Tazobactam 50 mls @ 100 mls/hr 06/14/18 18:00 06/15/18 10:47 Sod 3.375 gm/ Dextrose IVPB 100 mls/hr Q8H-IV [facility] Administration Protocol Insulin Aspart 1 vial 06/14/18 16:30 06/15/18 11:57 Novolog Vial Sliding Scale - SQ 6 units TIDAC [facility] Administration Protocol Levothyroxine Sodium 75 mcg 06/15/18 07:00 06/15/18 06:30 Synthroid - PO 75 mcg DAILY@0700 [facility] Administration Home Medications Medication Instructions Recorded Amlodipine Besylate/Benazepril 5 - 20 each PO DAILY 07/06/12 [Lotrel 5-20 mg Capsule] Aspirin [ASA -] 81 mg PO HS 07/06/12 Atorvastatin Ca [Lipitor] 20 mg PO HS 07/06/12 Glipizide [Glipizide Xl] 5 mg PO DAILY 07/06/12 metFORMIN HCL [Glucophage -] 500 mg PO BID 07/06/12 Glimepiride [Amaryl -] 2 mg PO DAILY 06/12/18 Levothyroxine [Synthroid -] 75 mcg PO DAILY 06/12/18 HOSPITAL COURSE: Date of Admission:06/11/18 Date of Discharge: 06/15/18 Patient is a 72 y/o lady with h/o HTN, HLP, DM ,hypothyroidism who presented with N/V and abd pain, and was found to have transaminitis and dilatation of CBD . # POD #1 s/p lap. chol. for acute cholecystitis, choledocholithiasis, s/p ERCP w/stent, as per Dr. Mascorro, patient can go home, hold aspirin for 7 days , see the surgeon within a week , follow with primary for follow up the blood pressure. follow with Dr. Ralph for stent removal within 2-3 months period # s/p Acute Pancreatitis post ERCP improved. # Acute Transaminitis : s/p ERCP completed IV zosyn # DM : placed her back on her home po meds. # HTN: continue Lotrel discharge patient home. Minutes to complete discharge: 42 Discharge Summary Reason For Visit: CHOLECYSTITIS Current Active Problems Abdominal pain (Acute) Calculus gallbladder and bile duct w/acute cholecystitis and obstructn (Acute) Choledocholithiasis (Acute) Cholelithiasis (Acute) Controlled diabetes mellitus with hyperglycemia, without long-term current use of insulin (Acute) Epigastric pain (Acute) Hyperlipidemia (Acute) Hypertension (Acute) Hypothyroidism (Acute) Obesity (BMI 30.0-34.9) (Acute) Transaminitis (Acute) Condition: Stable - Instructions Diet, Activity, Other Instructions: Postoperative instructions: You had a laparoscopic cholecystectomy on 06/14/[address] Chilango Mascorro of [facility]. You also had an ERCP with placement of a biliary stent on 06/12/18 by Gastroenterology, Dr. Timo Xie. You will need to follow up with him to repeat the ERCP in 2-3 months for removal of the stent. Activity: Resume your usual activities gradually, but no heavy exertion or lifting more than 10-15 pounds for 1 month. Remove dressings 48 hours after surgery; sticky tapes underneath will fall off by themselves. You may shower daily starting then, just pat the incision areas dry. No bath or swimming until skin incisions have healed. Eat lightly at first, but advance to your usual diet as tolerated. Pain: For pain, you may use Tylenol (acetaminophen) every 6 hours as needed. If you are prescribed a Tylenol/narcotic combination for severe pain, use it instead of plain Tylenol as needed and switch back when your pain starts decreasing. Do not take more than 4000mg of acetaminophen in a day. Take medications as prescribed or indicated on the labeling. Try not to use ibuprofen or naproxen at home for the next week. DO NOT TAKE ASPIRIN AT HOME FOR 1 WEEK AFTER DISCHARGE HOME, then may resume usual dose. Follow-up: Call Dr. Mascorro's office at [phone] to make your postop appointment (approximately 2 weeks after surgery). Clinic is held in the [facility] on the first floor of [facility]. Call the office if you have: * increasing pain not responsive to pain medication * fever of 101F or higher * vomiting * unusual or increasing bleeding or drainage from wounds * increasing redness or swelling at wound sites Also, see your primary medical doctor within 1-[address] Xie's office for a followup appointment in about 2 months. (You will need to hold your aspirin for 1 week before the next ERCP with stent removal as well, and possibly for some time afterward. Discuss this with GI when you follow up.) STOP YOUR ASPIRIN FOR 7 DAYS OR UNTILL SEEN BY THE SURGEON Referrals: Chilango Mascorro MD [Staff Physician] - 1 Week Timo Xie MD [Staff Physician] - Shashi Zambrano MD [Primary Care Provider] - 1 Week Disposition: HOME - Home Medications Comprehensive Discharge Medication List: Ambulatory Orders Amlodipine Besylate/Benazepril [Lotrel 5-20 mg Capsule] 5 - 20 each PO DAILY 09/12 Aspirin [ASA -] 81 mg PO HS 07/06/12 Atorvastatin Ca [Lipitor] 20 mg PO HS 07/06/12 Glipizide [Glipizide Xl] 5 mg PO DAILY 07/06/12 metFORMIN HCL [Glucophage -] 500 mg PO BID 07/06/12 Glimepiride [Amaryl -] 2 mg PO DAILY 06/12/18 Levothyroxine [Synthroid -] 75 mcg PO DAILY 06/12/18 This patient is new to me today: No Emergency Visit: Yes ED Registration Date: 06/11/18 Care time: The patient presented to the Emergency Department on the above date and was hospitalized for further evaluation of their emergent condition. Critical Care patient: No - Discharge Referral Referred to [facility] No
--- NOTE | 2018-06-15 15:26 | PN ---
Progress Note, Physician History of Present Illness: Pt with acute cholecystitis and choledocholithiasis, s/p ERCP with stone extraction, sphincterotomy and stent placement. Had chemical pancreatitis post- ERCP, but now s/p lap neymar yesterday with labs normalizing. Has voided, ambulated minimally, tolerating diet, pain controlled with nonnarcotics. Will stop ibuprofen given s/p sphincterotomy. Pt seen and examined in bed with sister - and brother-in law at bedside. No BM yet. Notes little pain at umbilical site , otherwise feeling well. - Current Medication List Current Medications: Active Medications Acetaminophen (Tylenol -) 650 mg PO Q6H [facility] Last Admin: 06/15/18 13:02 Dose: 650 mg Amlodipine Besylate (Norvasc -) 5 mg PO DAILY [facility] Last Admin: 06/15/18 10:48 Dose: 5 mg Atorvastatin Calcium (Lipitor -) 20 mg PO HS [facility] Last Admin: 06/14/18 21:27 Dose: 20 mg Piperacillin Sod/Tazobactam (Sod 3.375 gm/ Dextrose) 50 mls @ 100 mls/hr IVPB Q8H-IV [facility]; Protocol Last Admin: 06/15/18 10:47 Dose: 100 mls/hr Insulin Aspart (Novolog Vial Sliding Scale -) 1 vial SQ TIDAC [facility]; Protocol Last Admin: 06/15/18 11:57 Dose: 6 units Levothyroxine Sodium (Synthroid -) 75 mcg PO DAILY@0700 [facility] Last Admin: 06/15/18 06:30 Dose: 75 mcg - Objective Vital Signs: Vital Signs Temperature 98.9 F 06/15/18 05:00 Pulse Rate 76 06/15/18 09:00 Respiratory Rate 18 06/15/18 09:00 Blood Pressure 126/80 06/15/18 09:00 O2 Sat by Pulse Oximetry (%) 94 L 06/14/18 21:00 Constitutional: Yes: Well Nourished, No Distress, Calm Eyes: Yes: Conjunctiva Clear, EOM Intact. No: Sclera Icterus HENT: Yes: Atraumatic, Normocephalic Gastrointestinal: Yes: Soft, Abdomen, Obese, Tenderness (mild incisional only, mostly at umbilicus). No: Tenderness, Epigastrium Extremities: No: Cool, Cyanosis Integumentary: Yes: Incision (x4 dressed). No: Jaundice, Rash Wound/Incision: Yes: Steri Strips (under dressings), Dressing Dry and Intact (x4 ). No: Dressing Removed Neurological: Yes: Alert, Oriented Labs: CMP POC Glucometer 319 UNITS (80-120) 06/15/18 11:34 Total Bilirubin 0.6 mg/dL (0.2-1) 06/15/18 12:35 Direct Bilirubin 0.4 mg/dL (0.0-0.2) H 06/15/18 12:35 AST 53 U/L (15-37) H 06/15/18 12:35 ALT 326 U/L (13-61) H 06/15/18 12:35 Alkaline Phosphatase 225 U/L (45-117) H 06/15/18 12:35 Total Protein 6.2 g/dl (6.4-8.2) L 06/15/18 12:35 Albumin 3.0 g/dl (3.4-5.0) L 06/15/18 12:35 glucose still in high range Problem List - Problems (1) Calculus gallbladder and bile duct w/acute cholecystitis and obstructn Assessment/Plan: POD3 s/p ERCP with multiple ductal stones extracted, stent left for swollen sphincterotomy POD1 s/p laparoscopic cholecystectomy pain meds prn, nonnarcotics first line - ibuprofen discontinued should do well with tylenol only prn encouraged to be OOB and to walk in hallways if additional pain medicine needed, consider tramadol low dose, small quantity for home prn instead of Percocet Zosyn completed - will d/c tolerating diet, not yet back on home diabetic meds - would resume encouraged to keep record of sugars at home 2-3 times a day at least in am and BEFORE meals and take with her to PMD appt in ~2 wks (28th per pt) ok for d/c home from surgical standpoint outer dressings off tomorrow, to f/u in 2 weeks, lifting restrictions instructions in d/c plan discussed with Dr. Holt - to f/u with Dr. Xie in about 2 months to schedule repeat ERCP for stent removal will discuss with medicine if she needs to stay for anything else HOLD HOME ASPIRIN FOR 1 WEEK before resuming, and will need to do so again for 1 week prior to next ERCP and possibly after Code(s): K80.63 - CALCULUS OF GB AND BILE DUCT W ACUTE CHOLECYST W OBSTRUCTION (2) Controlled diabetes mellitus with hyperglycemia, without long-term current use of insulin Assessment/Plan: A1C is elevated 8.3 - granddaughter is dial maker, aware see above Code(s): E11.65 - TYPE 2 DIABETES MELLITUS WITH HYPERGLYCEMIA Qualifiers: Diabetes mellitus type: type 2 Qualified Code(s): E11.65 - Type 2 diabetes mellitus with hyperglycemia (3) Obesity (BMI 30.0-34.9) Code(s): E66.9 - OBESITY, UNSPECIFIED (4) Hypertension Assessment/Plan: back on norvasc, lotrel not resumed - BP has been ok, defer to medicine as to resuming all home meds on d/c Code(s): I10 - ESSENTIAL (PRIMARY) HYPERTENSION Qualifiers: Hypertension type: essential hypertension Qualified Code(s): I10 - Essential (primary) hypertension (5) Hypothyroidism Assessment/Plan: back on home synthroid Code(s): E03.9 - HYPOTHYROIDISM, UNSPECIFIED Qualifiers: Hypothyroidism type: unspecified Qualified Code(s): E03.9 - Hypothyroidism , unspecified (6) Hyperlipidemia Assessment/Plan: home med resumed Code(s): E78.5 - HYPERLIPIDEMIA, UNSPECIFIED Qualifiers: Hyperlipidemia type: unspecified Qualified Code(s): E78.5 - Hyperlipidemia , unspecified
[2018-06-15 15:40] VITALS: BP 138/80; PULSE 71; TEMP 97.6
--- NOTE | 2018-06-17 14:44 | PATH ---
Surgical Pathology Report Patient Name: CYNTHIA ARITA [facility]. Rec. #: [id number] /Age/Gender: 1945 (Age: 72) / F Account: [id number] Location: [address] [place] [address] Taken: 06/14/2018 Received: 06/14/2018 Reported: 06/17/2018 Physicians: Alison Schneider M.D. Specimen(s) Received GALLBLADDER Clinical History Acute cholecystitis, cholelithiasis status post ERCP with stent Final Diagnosis GALLBLADDER, LAPAROSCOPIC CHOLECYSTECTOMY: CHRONIC CHOLECYSTITIS WITH CHOLELITHIASIS. Electronically Signed Heidy Jones M.D. Gross Description Received in formalin, labeled "gallbladder," is a 6.3 x 3.3 x 3.0 cm. gallbladder with a 0.2 cm. in length portion of cystic duct attached. The outer surface is escalera-pink and varies from smooth to shaggy. The lumen contains brown, sludgelike bile as well as a 3.5 cm greatest dimension brown, ovoid cholelith. The mucosa is eroded. The wall of the gallbladder ranges from 0.1-0.5 cm. in thickness. Manager Medicaid sections are submitted in one cassette. 06/14/201806/14/2018
--- NOTE | 2018-06-19 08:25 | OP ---
DATE OF OPERATION: 06/14/2018 PREOPERATIVE DIAGNOSES: Acute cholecystitis, choledocholithiasis, status post endoscopic retrograde cholangiopancreatography with stent. POSTOPERATIVE DIAGNOSES: Acute cholecystitis, choledocholithiasis, status post endoscopic retrograde cholangiopancreatography with stent. PROCEDURE: Laparoscopic cholecystectomy. SURGEON: Chilango Mascorro MD DESIGN DRAFTER CHIEF: Wesley Delatorre MD ANESTHESIA: General endotracheal and local, 20 mL of 0.5% Marcaine. ESTIMATED BLOOD LOSS: 10 mL. FLUIDS: Crystalloid, 1300 mL. SPECIMEN: Gallbladder to Pathology. FINDINGS: Contracted gallbladder with multiple stones. Some dense overlying omental adhesions. An enlarged cystic duct with Weck clips used after clear identification of the cystic/gallbladder junction. There was a small arterial branch which was clipped first. Gallbladder was noted to be ischemic after the duct was clipped possibly with the cystic artery en bloc or the 1st clipping had been a small cystic artery. A large stone with other smaller ones were also palpable after extraction. DISPOSITION: Stable and extubated to PACU. INDICATIONS FOR PROCEDURE: The patient is a 72-year-old Iranian female with multiple medical problems including hypertension, hyperlipidemia, diabetes noninsulin dependent and hypothyroidism, who was admitted through the emergency room to Medicine with epigastric pain. She denied associated symptoms, but did admit to some element of chronic constipation. In the emergency room, she was afebrile with normal white count and lipase, elevated LFTs and other labs suggestive of dehydration and hyperglycemia. She received IV fluids. An ultrasound showed multiple gallstones and a contracted gallbladder with a dilated common bile duct and intrahepatic ducts. She was started on antibiotics with ID on board, seen by Gastroenterology, and an MRCP was done showing multiple gallstones with multiple filling defects in the common bile duct and cystic duct with dilated intrahepatic ducts. She was also noted to have a couple of very small pancreatic cysts or lesions that may require followup imaging. Given the presence of choledocholithiasis, GI performed ERCP the next day with stone extraction, sphincterotomy and stent placement, after the sphincterotomy got swollen enough that there was concern for ongoing drainage. She was then observed overnight and labs repeated to check for post ERCP pancreatitis, which she did develop a chemical episode of, with a lipase jump from 348 to 4000. She was able to tolerate some clear liquids the afternoon after ERCP but was returned to n.p.o. status except medications, with this element of chemical pancreatitis, and surgery was delayed for a day in order to allow this to begin resolving. Discussion with the patient was held via phone assembly line robot operator in Croatian to discuss risks, benefits and alternatives of laparoscopic, possible open cholecystectomy including but not limited to bleeding, infection, injury to adjacent structures , bile leak or ductal injury, intraabdominal abscess, incisional hernia, need for further procedures and . Alternatives included antibiotics and delayed or no surgery with the associated risks of recurrence of cholecystitis, cholangitis, pancreatitis, choledocholithiasis or . The patient desired to proceed with the operation and signed informed consent for the same. Operation was delayed a day waiting for resolution of her chemical pancreatitis. On the morning of surgery, her lipase had dropped again to 629, and LFTs were still in a downtrend with a normal white count. OPERATIVE TECHNIQUE: The patient was brought to the operating room and laid supine on the operating table. Sequential compression devices were applied to bilateral lower extremities, and, after induction and intubation by Anesthesia, the patient's abdomen was prepped and draped in sterile fashion. A small supraumbilical midline incision was made with a scalpel and carried into subcutaneous tissues with electrocautery, until the abdominal wall fascia was identified, scored and elevated with [place] clamps. A very, very tiny fascial defect was possibly identified as we were entering the fascia, where she may have had a bit of an umbilical incisional hernia from previous c-sections, but the fascia was opened with electrocautery, and the peritoneum entered bluntly and completely with the tip of a clamp, with a fingertip inserted to ensure complete entry into the abdominal cavity and the absence of any underlying adhesions. There was some fat palpable underneath the midline , believed to be a combination of the falciform and some omental adhesions to the area. This was gently and bluntly swept to the side to ensure a straight pathway for visualization once the laparoscope had been inserted. A stay suture of 0-vicryl was placed in figure-of-8 fashion in the fascia for later closure. The Rudy trocar was then inserted under direct vision into the abdominal cavity and secured in place with the balloon, at which time the abdomen was insufflated with carbon dioxide, and the patient placed in reverse Trendelenburg position. The camera was inserted through the trocar, and the edge of the gallbladder was visible just past the liver edge, with some clearly overlying omental adhesions. Additional 5-mm ports were placed under direct vision, first in the subxiphoid area, and then 2 in the right upper quadrant, through which grasping instruments were inserted to initially begin trying to take down these omental adhesions. The omentum was, however, densely adherent to the anterior surface of the gallbladder. Thus, hook cautery was used through the operative port and a grasper through the triage assistant ports to carefully separate these omental adhesions from the gallbladder wall, taking care not to enter the gallbladder itself. Once the gallbladder had been freed enough to be able to grasp the fundus and elevate it over the liver edge with a grasper, as well as see down to the base of the gallbladder, a 2nd grasper was used to grasp near the infundibulum. There were definitely multiple stones palpable in the gallbladder. The [place] dissector was used to carefully begin dissecting away the peritoneum and the fat at the base of the gallbladder to identify clearly the cystic duct and artery. The cystic duct, as it came into view, appeared to be quite enlarged and possibly quite short. Dissection was undertaken both medially and laterally at this area of the anticipated cystic duct, as well as at the base of the gallbladder itself, to very clearly delineate the lower border of the gallbladder, at which point the cystic/gallbladder junction more clearly came into view, with a few overlying peritoneal bands. These were very carefully and serially divided, some bluntly and some with the hook cautery, which was also used to continue making sure that the gallbladder wall was clearly identified underneath the peritoneal surface. A small arterial branch was also noted just medial to this and carefully isolated and clipped with 5-mm clips, 2 proximally and 1 distally, and then divided. It was unclear whether this was truly the cystic artery, but dissection again had continued up a little bit on the medial and lateral sides of the gallbladder base to be very clear that we had identified the cystic duct coming off of the gallbladder base. At this point, Weck clips were used in a locking fashion, after we had clearly encircled the cystic duct right at the gallbladder junction to clip the duct, 2 proximally and 1 distally, as close to the gallbladder junction as possible, leaving room to divide between the clips with the scissors. It was felt that it was possible there was a portion of the cystic artery actually running immediately adjacent to or with the duct itself, but it could not be from it safely without risking avulsion of the possible vascular structure. Thus, the duct was clipped with the Weck clips across either the large duct itself or the duct with the artery running with it. Once the duct had been clipped and cut, a single large lumen was noted where the cut had been made, so again we thought it was possible that the cystic artery had in fact been the smaller artery already clipped, because the gallbladder itself began to appear ischemic after clipping of the duct. Further dissection with the [place] dissector, and then dissection with the hook cautery, to take the gallbladder itself off the liver bed was done carefully and with attention to possible identification of any other vascular structures, but none were seen, and at this point we were clearly up on the base of the gallbladder at the liver edge. The hook cautery was used to complete the job of removing the gallbladder from the liver itself. Once this had been fully accomplished, the EndoCatch bag was inserted through the Rudy port and used to place the gallbladder into, so that it could be retrieved out the umbilical port site. A large stone amongst other smaller ones were palpable after extraction, and this was passed off for a pathology specimen. The Rudy trocar and pneumoperitoneum were reestablished, and the camera reinserted to inspect the field. The suction oil field technician was used to periodically irrigate and clear the field of any bloody fluid, as well as suction that fluid up from the operative site and also over the liver edge. Hemostasis was noted to be complete, with no active bleeding from the liver bed at any place, and our clips were noted to be intact with full visualization of the operative field. The patient was then returned to neutral position. The 5-mm ports were removed under direct vision, as well as the Rudy trocar and camera, and the abdomen exsufflated of carbon dioxide. The stay suture in the fascia at the umbilical site was then tied to close the fascia there. Hemostasis was achieved in the port sites with electrocautery where needed, and local anesthetic was infiltrated into all the port sites. Skin was closed with 4-0 Vicryl subcuticular sutures, including a running at the umbilicus. All sites were then covered with benzoin and Steri-Strips, and dressings of gauze and Tegaderm were placed over these. Counts were correct at the end of the procedure. The patient was then awakened by Anesthesia, extubated and returned to a stretcher to be taken to the recovery room in stable condition having tolerated the procedure well. Dr. Delatorre was an essential triage assistant throughout the procedure, including facilitating entry into the abdominal cavity, grasping and manipulation of the gallbladder throughout the case, helping with retrieval of the gallbladder, local infiltration and closure of the skin at the end of the case. Chilango Mascorro M.D. [id number] MTDD
== END 2018-06-15 16:32 | disposition home or self-care (01) | DRG 418 ==
LOC: JER 21:58 → JERBED 06-11 02:07 → MERGE 06-11 02:07 → J6S 06-11 07:53 → UNDODISIN 06-12 12:33
PROVIDERS: ADMIT Internal Medicine; ATTEND Internal Medicine
PROC: 0FT44ZZ Resection of Gallbladder, Percutaneous Endoscopic Approach (ICD-10-PCS; 2018-06-12)
PROC: 0F798DZ Dilation of Common Bile Duct with Intraluminal Device, Via Natural or Artificial Opening Endoscopic (ICD-10-PCS; 2018-06-12)
PROC: 0FC98ZZ Extirpation of Matter from Common Bile Duct, Via Natural or Artificial Opening Endoscopic (ICD-10-PCS; principal; 2018-06-12 10:45)
DX: K80.63 Calculus of gallbladder and bile duct with acute cholecystitis with obstruction (principal); K86.2 Cyst of pancreas; I10 Essential (primary) hypertension; E78.5 Hyperlipidemia, unspecified; E03.9 Hypothyroidism, unspecified; E11.65 Type 2 diabetes mellitus with hyperglycemia; R74.0 Nonspecific elevation of levels of transaminase and lactic acid dehydrogenase [LDH]; M19.90 Unspecified osteoarthritis, unspecified site; K59.09 Other constipation; R10.13 Epigastric pain; E66.9 Obesity, unspecified; Z68.32 Body mass index [BMI] 32.0-32.9, adult; Z87.442 Personal history of urinary calculi; Z79.4 Long term (current) use of insulin; Z78.0 Asymptomatic menopausal state
CPT/HCPCS: 36415; 74181-TC; 76000-TC-FY; 76705-TC; 80048; 80053; 80074; 80076; 81003; 81015; 82962; 83036; 83516; 83540; 83605; 83690; 83735; 84100; 84484; 85025; 85027; 85610; 86038; 86850; 86900; 86901; 88304-TC; 90670; 93005; 93010; 94010; 94760; 99285-25; J0131; J1644; J7030

== ENCOUNTER 2018-08-23 10:16 | Day surgery (SDC) | payer MEDICARE, OTHER | END 2018-08-23 15:50 | disposition home or self-care (01) | LOC: JASU-ENDO 10:16 ==

== ENCOUNTER 2023-02-24 11:47 | Inpatient (IN) | payer OTHER ==
[2023-02-24 12:50] LABS: VENOUS BASE EXCESS 1.7 mmol/L (-2-2); VENOUS O2 SATURATION 36.4 % (70-80); VENOUS PCO2 45.1 mmHg (38-52); VENOUS PH 7.395 (7.310-7.410)
[2023-02-24 12:52] LABS: BASO % 0.3 % (0-2.0); EOS % 1.8 % (0-4.5); HEMOGLOBIN 12.1 GM/dL (10.7-15.3); LYMPH % 9.1 % (8-40); MCH 28.8 pg (25.7-33.7); MCHC 33.7 g/dl (32.0-36.0); MEAN CELL VOLUME 85.4 fl (80-96); MEAN PLT VOLUME 7.5 fl (7.5-11.1); MONO % 5.6 % (3.8-10.2); NEUT % 83.2 % (42.8-82.8); PLATELET COUNT 390 10^3/uL (134-434); RBC 4.21 M/mm3 (3.60-5.2); RDW 14.1 % (11.6-15.6); WHITE BLOOD COUNT 9.4 K/mm3 (4.0-10.0)
[2023-02-24] MEDS ORDERED: ACETAMINOPHEN 1000 MG/100 ML BAG IVPB ONE (13:05)
[2023-02-24] MEDS ORDERED: METOCLOPRAMIDE HCL INJECTION 10 MG/2 ML VIAL IVPUSH ONE (13:06)
[2023-02-24] MEDS ORDERED: METOCLOPRAMIDE HCL INJECTION 10 MG/2 ML VIAL ONE (13:10)
[2023-02-24] MEDS ORDERED: ACETAMINOPHEN INJECTION 100 ML IVPB ONE (13:11)
[2023-02-24 13:16] LABS: CHLORIDE 105 mmol/L (98-107); POTASSIUM 3.9 mmol/L (3.5-5.1); SODIUM 140 mmol/L (136-145)
[2023-02-24 13:18] LABS: ALBUMIN 2.9 g/dl (3.4-5.0); ANION GAP 10 mmol/L (4-13); BLOOD UREA NITROGEN 11.5 mg/dL (7-18); CALCIUM 9.4 mg/dL (8.5-10.1); CO2 25 mmol/L (21-32); GLUCOSE,RANDOM 212 mg/dL (74-106)
[2023-02-24 13:21] LABS: CREATININE 0.7 mg/dL (0.55-1.3); SGPT/ALT 19 U/L (13-61)
[2023-02-24 13:22] LABS: SGOT/AST 16 U/L (15-37)
[2023-02-24 13:23] LABS: BILIRUBIN,TOTAL 0.4 mg/dL (0.2-1)
[2023-02-24 13:24] LABS: ALK PHOS 93 U/L (45-117)
[2023-02-24 13:54] LABS: MAGNESIUM 0.8 mg/dL (1.8-2.4); N-TERMINAL BNP 135.6 pg/ml (5-450)
[2023-02-24] MEDS ORDERED: MAGNESIUM SULFATE IN WATER 2 GM/50 ML IVPB IVPB ONE ×2 (13:58→14:08)
[2023-02-24] MEDS: CEFTRIAXONE 1 GM in DEXTROSE 5%-WATER - 50 ML IVPB SCH (16:06)
[2023-02-24 16:28] VITALS: BMI 30.2
[2023-02-24] MEDS ORDERED: INSULIN (NOVOLOG) ASPART 100 UNITS/ML 10ML VIAL ONE (17:19)
[2023-02-24] MEDS: INSULIN SLIDING SCALE (NOVOLOG) 1 VIAL SQ SCH (17:26)
[2023-02-24] MEDS: ATORVASTATIN CA 20 MG TABLET (FP) PO SCH (22:53)
[2023-02-24] MEDS: HEPARIN NA (PORCINE) 5,000 UNITS/ML 1ML VIAL SQ SCH (22:54)
[2023-02-24] MEDS: DOXYCYCLINE INJECTION 100 MG in DEXTROSE 5%-WATER 100 ML IVPB SCH (23:00)
[2023-02-25] MEDS: LEVOTHYROXINE NA 100 MCG TABLET (FP) PO SCH (06:40)
[2023-02-25] MEDS: INSULIN SLIDING SCALE (NOVOLOG) 1 VIAL SQ SCH ×3 (06:41→17:42)
[2023-02-25 08:00] LABS: POTASSIUM 4.3 mmol/L (3.5-5.1)
[2023-02-25 08:04] LABS: CALCIUM 9.1 mg/dL (8.5-10.1)
[2023-02-25 08:07] LABS: CREATININE 0.5 mg/dL (0.55-1.3)
[2023-02-25 08:16] LABS: BASO % 0.4 % (0-2.0); EOS % 3.6 % (0-4.5); HEMATOCRIT 33.7 % (32.4-45.2); HEMOGLOBIN 10.8 GM/dL (10.7-15.3); LYMPH % 11.6 % (8-40); MCH 28.1 pg (25.7-33.7); MCHC 32.2 g/dl (32.0-36.0); MEAN CELL VOLUME 87.1 fl (80-96); MONO % 6.7 % (3.8-10.2); NEUT % 77.7 % (42.8-82.8); PLATELET COUNT 335 10^3/uL (134-434); RBC 3.86 M/mm3 (3.60-5.2); RDW 14.2 % (11.6-15.6); WHITE BLOOD COUNT 9.1 K/mm3 (4.0-10.0)
[2023-02-25] MEDS ORDERED: PATIENT'S OWN MEDICATION (NON-FORMULARY) (Amlodipine Besylate/Benazepril [Amlodipine-Benaz PO SCH (10:00)
[2023-02-25] MEDS: CEFTRIAXONE 1 GM in DEXTROSE 5%-WATER - 50 ML IVPB SCH (10:21)
[2023-02-25] MEDS: LISINOPRIL 20 MG TABLET PO SCH (10:21)
[2023-02-25] MEDS: DOXYCYCLINE INJECTION 100 MG in DEXTROSE 5%-WATER 100 ML IVPB SCH ×2 (10:21→21:47)
[2023-02-25] MEDS: HEPARIN NA (PORCINE) 5,000 UNITS/ML 1ML VIAL SQ SCH ×2 (10:21→21:47)
[2023-02-25] MEDS: amLODIPine BESYLATE 5 MG TABLET (FP) PO SCH (10:21)
[2023-02-25 11:33] LABS: MAGNESIUM 1.4 mg/dL (1.8-2.4)
[2023-02-25] MEDS ORDERED: ACETAMINOPHEN 1000 MG/100 ML BAG IVPB PRN (13:35)
[2023-02-25] MEDS: methylPREDNISolone NA SUCC 40 MG/1 ML VIAL IVPUSH SCH (14:51)
[2023-02-25] MEDS ORDERED: INSULIN (NOVOLOG) ASPART 100 UNITS/ML 10ML VIAL ONE (17:34)
[2023-02-25] MEDS: ATORVASTATIN CA 20 MG TABLET (FP) PO SCH (21:47)
[2023-02-26] MEDS: INSULIN SLIDING SCALE (NOVOLOG) 1 VIAL SQ SCH ×3 (06:34→17:33)
[2023-02-26] MEDS: LEVOTHYROXINE NA 100 MCG TABLET (FP) PO SCH (06:35)
[2023-02-26 07:36] LABS: HEMATOCRIT 34.9 % (32.4-45.2); HEMOGLOBIN 11.2 GM/dL (10.7-15.3); MCH 28.1 pg (25.7-33.7); MEAN CELL VOLUME 87.5 fl (80-96); MEAN PLT VOLUME 8.1 fl (7.5-11.1); PLATELET COUNT 391 10^3/uL (134-434); RBC 3.98 M/mm3 (3.60-5.2); RDW 14.1 % (11.6-15.6)
[2023-02-26 07:51] LABS: MAGNESIUM 1.6 mg/dL (1.8-2.4)
[2023-02-26 07:54] LABS: BLOOD UREA NITROGEN 20.9 mg/dL (7-18)
[2023-02-26 07:55] LABS: CREATININE 0.7 mg/dL (0.55-1.3); PHOSPHOROUS 2.6 mg/dL (2.5-4.9)
[2023-02-26] MEDS ORDERED: MAGNESIUM 2GM/50ML STERILE WATER IVPB IVPB ONE (08:01)
[2023-02-26] MEDS: LISINOPRIL 20 MG TABLET PO SCH (09:21)
[2023-02-26] MEDS: HEPARIN NA (PORCINE) 5,000 UNITS/ML 1ML VIAL SQ SCH ×2 (09:22→21:32)
[2023-02-26] MEDS: amLODIPine BESYLATE 5 MG TABLET (FP) PO SCH (09:22)
[2023-02-26] MEDS: CEFTRIAXONE 1 GM in DEXTROSE 5%-WATER - 50 ML IVPB SCH (09:22)
[2023-02-26] MEDS: methylPREDNISolone NA SUCC 40 MG/1 ML VIAL IVPUSH SCH (09:22)
[2023-02-26] MEDS: INSULIN (LEVEMIR) 100 UNITS/ML UNITS SQ SCH ×2 (09:34→21:32)
[2023-02-26] MEDS ORDERED: MAGNESIUM HYDROX 2400MG/30ML ORAL SUSPENSION 30 ML CUP PO PRN (10:15)
[2023-02-26] MEDS: DOXYCYCLINE INJECTION 100 MG in DEXTROSE 5%-WATER 100 ML IVPB SCH ×2 (11:15→21:32)
[2023-02-26] MEDS: INSULIN (NOVOLOG) ASPART 100 UNITS/ML 10ML VIAL SQ SCH ×2 (12:26→17:33)
[2023-02-26] MEDS: ATORVASTATIN CA 20 MG TABLET (FP) PO SCH (21:32)
[2023-02-26] MEDS ORDERED: SENNOSIDES 8.8 MG/5 ML SYRUP PO SCH (22:00)
[2023-02-27] MEDS: LEVOTHYROXINE NA 100 MCG TABLET (FP) PO SCH (06:42)
[2023-02-27] MEDS: INSULIN (LEVEMIR) 100 UNITS/ML UNITS SQ SCH ×2 (06:42→21:34)
[2023-02-27] MEDS: INSULIN SLIDING SCALE (NOVOLOG) 1 VIAL SQ SCH ×3 (06:42→17:12)
[2023-02-27] MEDS: INSULIN (NOVOLOG) ASPART 100 UNITS/ML 10ML VIAL SQ SCH ×3 (06:42→17:17)
[2023-02-27 07:47] LABS: BASO % 0.3 % (0-2.0); EOS % 0.2 % (0-4.5); HEMATOCRIT 35.7 % (32.4-45.2); HEMOGLOBIN 11.1 GM/dL (10.7-15.3); LYMPH % 13.7 % (8-40); MCH 27.3 pg (25.7-33.7); MEAN CELL VOLUME 88.2 fl (80-96); MEAN PLT VOLUME 7.9 fl (7.5-11.1); MONO % 5.1 % (3.8-10.2); NEUT % 80.7 % (42.8-82.8); PLATELET COUNT 445 10^3/uL (134-434); RBC 4.05 M/mm3 (3.60-5.2); RDW 13.9 % (11.6-15.6); WHITE BLOOD COUNT 14.1 K/mm3 (4.0-10.0)
[2023-02-27 08:01] LABS: POTASSIUM 4.7 mmol/L (3.5-5.1)
[2023-02-27 08:07] LABS: BLOOD UREA NITROGEN 20.7 mg/dL (7-18); CALCIUM 9.9 mg/dL (8.5-10.1); MAGNESIUM 1.6 mg/dL (1.8-2.4)
[2023-02-27 08:11] LABS: CREATININE 0.6 mg/dL (0.55-1.3)
[2023-02-27] MEDS: DOXYCYCLINE INJECTION 100 MG in DEXTROSE 5%-WATER 100 ML IVPB SCH ×2 (09:15→21:21)
[2023-02-27] MEDS: amLODIPine BESYLATE 5 MG TABLET (FP) PO SCH (09:21)
[2023-02-27] MEDS: HEPARIN NA (PORCINE) 5,000 UNITS/ML 1ML VIAL SQ SCH ×2 (09:21→21:21)
[2023-02-27] MEDS: CEFTRIAXONE 1 GM in DEXTROSE 5%-WATER - 50 ML IVPB SCH (09:21)
[2023-02-27] MEDS: LISINOPRIL 20 MG TABLET PO SCH (09:21)
[2023-02-27] MEDS: methylPREDNISolone NA SUCC 40 MG/1 ML VIAL IVPUSH SCH (09:21)
[2023-02-27] MEDS ORDERED: MAGNESIUM SULFATE IN WATER 2 GM/50 ML IVPB IVPB ONE (14:17)
[2023-02-27] MEDS ORDERED: ACETAMINOPHEN 1000 MG/100 ML BAG IVPB PRN (16:40)
[2023-02-27] MEDS ORDERED: MAGNESIUM HYDROX 2400MG/30ML ORAL SUSPENSION 30 ML CUP PO PRN (16:40)
[2023-02-27] MEDS: ATORVASTATIN CA 20 MG TABLET (FP) PO SCH (21:21)
[2023-02-27] MEDS: NAPH,MB-DB/K PH,MBDB POWDER PACKET PO SCH (21:21)
[2023-02-27] MEDS: SENNOSIDES 8.8 MG/5 ML SYRUP PO SCH (21:22)
[2023-02-28] MEDS: INSULIN SLIDING SCALE (NOVOLOG) 1 VIAL SQ SCH ×4 (06:10→17:17)
[2023-02-28] MEDS: INSULIN (LEVEMIR) 100 UNITS/ML UNITS SQ SCH ×2 (06:10→21:58)
[2023-02-28] MEDS: INSULIN (NOVOLOG) ASPART 100 UNITS/ML 10ML VIAL SQ SCH ×4 (06:10→17:17)
[2023-02-28] MEDS: LEVOTHYROXINE NA 100 MCG TABLET (FP) PO SCH (06:11)
[2023-02-28] MEDS ORDERED: INSULIN SLIDING SCALE (NOVOLOG) 1 VIAL SQ SCH (07:00)
[2023-02-28] MEDS ORDERED: INSULIN (NOVOLOG) ASPART 100 UNITS/ML 10ML VIAL SQ SCH (07:00)
[2023-02-28 09:46] LABS: BASO % 0.3 % (0-2.0); EOS % 0.5 % (0-4.5); HEMATOCRIT 34.3 % (32.4-45.2); HEMOGLOBIN 11.5 GM/dL (10.7-15.3); MCH 28.7 pg (25.7-33.7); MCHC 33.5 g/dl (32.0-36.0); MEAN CELL VOLUME 85.6 fl (80-96); MEAN PLT VOLUME 7.8 fl (7.5-11.1); MONO % 7.2 % (3.8-10.2); PLATELET COUNT 411 10^3/uL (134-434); RDW 14.2 % (11.6-15.6); WHITE BLOOD COUNT 11.7 K/mm3 (4.0-10.0)
[2023-02-28 09:59] LABS: POTASSIUM 4.2 mmol/L (3.5-5.1)
[2023-02-28] MEDS ORDERED: cefTRIAXone SODIUM 1 GM VIAL ONE (10:31)
[2023-02-28 10:37] LABS: BILIRUBIN,TOTAL 0.3 mg/dL (0.2-1); BLOOD UREA NITROGEN 17.1 mg/dL (7-18); TOT PROT 6.4 g/dl (6.4-8.2)
[2023-02-28 10:40] LABS: CREATININE 0.5 mg/dL (0.55-1.3)
[2023-02-28] MEDS: LISINOPRIL 20 MG TABLET PO SCH (10:41)
[2023-02-28] MEDS: CEFTRIAXONE 1 GM in DEXTROSE 5%-WATER - 50 ML IVPB SCH (10:41)
[2023-02-28] MEDS: HEPARIN NA (PORCINE) 5,000 UNITS/ML 1ML VIAL SQ SCH ×2 (10:41→21:57)
[2023-02-28] MEDS: amLODIPine BESYLATE 5 MG TABLET (FP) PO SCH (10:41)
[2023-02-28] MEDS: NAPH,MB-DB/K PH,MBDB POWDER PACKET PO SCH ×2 (10:41→21:59)
[2023-02-28] MEDS: methylPREDNISolone NA SUCC 40 MG/1 ML VIAL IVPUSH SCH (10:42)
[2023-02-28 10:43] LABS: CALCIUM 9.9 mg/dL (8.5-10.1); MAGNESIUM 1.9 mg/dL (1.8-2.4)
[2023-02-28 10:44] LABS: ALBUMIN 2.8 g/dl (3.4-5.0)
[2023-02-28] MEDS: DOXYCYCLINE INJECTION 100 MG in DEXTROSE 5%-WATER 100 ML IVPB SCH (11:16)
[2023-02-28] MEDS: SENNOSIDES 8.8 MG/5 ML SYRUP PO SCH (21:59)
[2023-02-28] MEDS: ATORVASTATIN CA 20 MG TABLET (FP) PO SCH (21:59)
[2023-03-01] MEDS: LEVOTHYROXINE NA 100 MCG TABLET (FP) PO SCH (07:45)
[2023-03-01] MEDS: INSULIN (LEVEMIR) 100 UNITS/ML UNITS SQ SCH (07:45)
[2023-03-01] MEDS: INSULIN SLIDING SCALE (NOVOLOG) 1 VIAL SQ SCH ×2 (07:46→11:44)
[2023-03-01] MEDS: INSULIN (NOVOLOG) ASPART 100 UNITS/ML 10ML VIAL SQ SCH ×2 (07:46→11:44)
[2023-03-01] MEDS: CEFTRIAXONE 1 GM in DEXTROSE 5%-WATER - 50 ML IVPB SCH (09:09)
[2023-03-01] MEDS: HEPARIN NA (PORCINE) 5,000 UNITS/ML 1ML VIAL SQ SCH (09:10)
[2023-03-01] MEDS: LISINOPRIL 20 MG TABLET PO SCH (09:10)
[2023-03-01] MEDS: methylPREDNISolone NA SUCC 40 MG/1 ML VIAL IVPUSH SCH (09:10)
[2023-03-01] MEDS: NAPH,MB-DB/K PH,MBDB POWDER PACKET PO SCH (09:10)
[2023-03-01] MEDS: amLODIPine BESYLATE 5 MG TABLET (FP) PO SCH (09:10)
[2023-03-01 11:42] VITALS: PULSE 86
[2023-03-01 14:11] VITALS: BP 125/71; RESP 18; TEMP 97.6
== END 2023-03-01 15:21 | disposition home or self-care (01) | DRG 193 ==
LOC: JER 11:47 → JERBED 13:59 → J4W 15:18 → J6S 02-27 12:13
PROVIDERS: ADMIT Internal Medicine; ATTEND Internal Medicine
DX: J18.9 Pneumonia, unspecified organism (principal); J96.01 Acute respiratory failure with hypoxia; E03.9 Hypothyroidism, unspecified; E11.9 Type 2 diabetes mellitus without complications; I10 Essential (primary) hypertension; E83.42 Hypomagnesemia; R09.02 Hypoxemia; E78.5 Hyperlipidemia, unspecified
CPT/HCPCS: 0241U-QW; 36415; 71045-TC-FY; 71275-TC; 80048; 80053; 82803; 82962; 83036; 83735; 83880; 84100; 84439; 84443; 84484; 85025; 85027; 86850; 86900; 86901; 87899; 93005; 93010; 94761; 97116-GP; 97162-GP; 99291; J1644